=== PATIENT | male | born 1945 | race Caucasian/White ===

== ENCOUNTER 2016-09-29 07:30 | Inpatient (IN) | payer MEDICARE ==
[~2016-09-29] VITALS: Ht 193 cm; Wt 125.0 kg
[2016-10-09] MEDS ORDERED: MOBI15TA PO (08:58)
[2016-10-09] MEDS ORDERED: TEST1GEL10 TOPICAL (08:58)
[2016-10-09] MEDS ORDERED: ASPI81TA2 PO (08:58)
[2016-10-09] MEDS ORDERED: CYMB60CA PO (08:58)
[2016-10-09] MEDS ORDERED: OMEP40CA2 PO (08:58)
[2016-10-09] MEDS ORDERED: ATOR20TA15 PO (08:58)
[2016-10-09] MEDS ORDERED: GABA800T PO (08:58)
[2016-10-09] MEDS ORDERED: CARV12.52 PO (08:58)
[2016-10-27] MEDS ORDERED: LACTATED RINGER'S 1000 ML IV PRN (06:00)
[2016-10-27] MEDS ORDERED: VANCOMYCIN 1000 MG/NS 250 ML (for <70 kg) IV SCH ×2 (06:00)
[2016-10-27] MEDS ORDERED: METOPROLOL TARTRATE 25 MG TAB PO PRN (06:00)
[2016-10-27] MEDS ORDERED: POVIDONE IODINE 7.5% SCRUB 118 ML BOTTLE TOPICAL SCH (06:00)
[2016-10-27] MEDS ORDERED: CHLORHEXIDINE GLUCONATE 2 % 1 PACK (2 CLOTHS) TOPICAL PRN (06:00)
[2016-10-27] MEDS ORDERED: POVIDONE IODINE 5% (ANTISEPSIS KIT) 4 APPLICATIONS EACH NARE PRN (06:00)
[2016-10-27] MEDS ORDERED: EXPAREL PERI-ARTICULAR INJECTION (TOTAL VOL. 60 ML) P-ARTICULR SCH ×2 (06:00)
[2016-10-27] MEDS ORDERED: SODIUM CHLORIDE 0.9% IV SCH ×2 (06:00→10:00)
[2016-10-27] MEDS ORDERED: SODIUM CHLORID 0.9% 500 ML IV PRN (06:00)
[2016-10-27] MEDS ORDERED: TRANEXAMIC ACID IV SCH ×2 (06:00→10:00)
[2016-10-27] MEDS ORDERED: INSULIN HUMAN REGULAR 1,000 UNITS/10 ML VIAL SQ PRN (06:00)
[2016-10-27] MEDS ORDERED: ceFAZolin 2 GM PREMIX 50 ML IV SCH (06:00)
[2016-10-27] MEDS ORDERED: FAMOTIDINE 20 MG/2 ML VIAL ONE (06:52)
[2016-10-27] MEDS ORDERED: MIDAZOLAM HCL 2 MG/2 ML VIAL ONE (06:52)
[2016-10-27] MEDS ORDERED: ACETAMINOPHEN 1000 MG/100 ML VIAL ONE (06:52)
[2016-10-27] MEDS ORDERED: EPINEPHrine HCL (1:1000) 1 MG/ML VIAL ONE (06:55)
[2016-10-27] MEDS ORDERED: GENTAMICIN SULFATE 80 MG/2 ML VIAL ONE (06:55)
[2016-10-27] MEDS ORDERED: MISCELLANEOUS PHARMACY INFORMATION XX ONE (07:45)
[2016-10-27] MEDS ORDERED: ACETAMINOPHEN/HYDROcodone 325 MG/7.5 MG TAB PO PRN (07:45)
[2016-10-27] MEDS ORDERED: NALOXONE HCL 0.4 MG/ML AMP IV PRN (07:45)
[2016-10-27] MEDS ORDERED: SODIUM CHLORIDE 0.9% FLUSH 5 ML FLUSH IVF PRN (07:45)
[2016-10-27] MEDS ORDERED: MORPHINE SULFATE 8 MG/ML INJ IM PRN (07:45)
[2016-10-27] MEDS ORDERED: MISCELLANEOUS NURSING INFORMATION XX PRN (07:45)
[2016-10-27] MEDS ORDERED: HYDROmorphone HCL PF 2 MG/ML VIAL ONE (07:46)
[2016-10-27] MEDS ORDERED: HYDR-3580 PO (07:51)
[2016-10-27] MEDS ORDERED: XARE10TA PO (07:51)
[2016-10-27] MEDS: MAGNESIUM HYDROXIDE SUSP 30 ML CUP PO SCH ×2 (09:00→20:02)
[2016-10-27] MEDS: CARVEDILOL 12.5 MG TAB PO SCH ×2 (09:00→20:01)
[2016-10-27] MEDS: PANTOPRAZOLE SOD 40 MG DELAYED RELEASE TAB PO SCH (09:00)
[2016-10-27] MEDS: SODIUM CHLORIDE 0.9% FLUSH 5 ML FLUSH IVF SCH ×2 (09:00→20:03)
[2016-10-27] MEDS: DULoxetine HCl DR 60 MG CAP PO SCH ×2 (09:00→20:01)
--- NOTE | 2016-10-27 09:54 | PD.OP ---
cc: Mario Aguirre MD Operative Report Date of Surgery: Oct 27, 2016 Preoperative Diagnosis: Osteoarthritis right hip, severe Postoperative Diagnosis: Same Procedure: Right total hip replacement arthroplasty, direct anterior exposure Anesthesia: Gen. Surgeon: Mario Aguirre Electrical Sign Wirer Helper(s): GREER Montesinos Operation and Findings: EBL: 1100 cc INDICATION: This patient presents with significant hip pain related to severe osteoarthritis of the right hip. He has had a previous left hip replacement arthroplasty and has done well.. Despite extensive conservative care this patient continues to be painful and now presents for surgical treatment. NOTE: Tanya Montesinos PA-C was present for the entire surgical procedure as my cleaner assistant. In my medical opinion her skill and care was necessary for the proper management of this patient. COMPONENTS: COMPANY: [employer] CUP: Cooks, 62 mm, 100 series, gription surface LINER: Altrx 36 mm, neutral STEM: Corail size 12, high offset, hydroxyapatite-coated HEAD: 36, +8.5, metal, 12/14 taper PROCEDURE: This patient was brought to the operating room and anesthetized in the supine position and positioned on the fracture table with both legs held extended. The right hip and leg was scrubbed with alcohol followed by Hibiclens followed by ChloraPrep and draped sterilely. Antibiotics were given within routine time window and a timeout was done. A 4 inch incision was made starting 2 cm distal and 2 cm lateral to the anterior superior iliac spine. The fascia julienne was opened longitudinally. The interval between the fascia julienne and the rectus was opened down to the capsule of the hip joint. Retractors were positioned allowing good visualization of the capsule. This was opened longitudinally and flaps were created. Stay sutures were utilized. Exposure was excellent. The neck was cut at the proper location using fluoroscopy as a guide. The head was removed. Deep retractors were positioned allowing good visualization of the acetabulum. Acetabulum was deepened down to the floor starting with a proper size reamer and reaming up to 61 mm. A trial was utilized. Fluoroscopy was used to check position and confirmed satisfactory alignment. The rim was reamed with a 62 mm reamer and the final cup was positioned in approximately 20 of anteversion and 40-45 of abduction. Position was satisfactory. A single hole eliminator was positioned followed by the final liner. The lifting hook was utilized. The leg was dropped to the floor, maximally externally rotated and brought across the midline. Retractors were positioned. A box osteotome was utilized followed by progressive broaching to the proper stem size. We found we had to ream the canal to 12 mm with a flexible reamer in order to go from a size 11 to a size 12. The size 11 was too deeply seated and the size 12 would not fit because of a tight canal diameter. Trial reduction showed excellent alignment and fit. With 60 of external rotation the leg was dropped to the floor without evidence of anterior subluxation. The wound was irrigated. The final stem was inserted and was found to be very stable. The final reduction using the final head. Stability was as previously noted. Intraoperative x-rays were taken. The wound was irrigated copiously. Hemostasis was controlled. Local anesthesia was utilized. The capsule was repaired with #2 Tycron sutures. The fascia julienne was repaired with running 0 PDS on a loop. Subcutaneous tissue was approximated with 2-0 Vicryl and skin with running intradermal 3-0 Vicryl followed by Steri-Strips. A sterile dressing was applied. The patient was awakened and taken to the recovery room in satisfactory condition. FINDINGS: There was severe osteoarthritis of the hip. Circumferential osteophytes were removed with a See and osteotome after cup placement. Stability was excellent. There was no comp location that was appreciated. Mario Aguirre MD Oct 27, 2016 09:54
[2016-10-27] MEDS ORDERED: MORPHINE SULFATE 30 MG/30 ML PCA IV SCH (10:00)
[2016-10-27] MEDS ORDERED: fentaNYL CITRATE 250 MCG/5 ML AMP ONE (10:21)
[2016-10-27] MEDS ORDERED: Post-op Orders (for Pharmacy) MISC XX ONE (10:30)
[2016-10-27] MEDS: LACTATED RINGER'S 1000 ML INJ 1,000 ML IV SCH (10:39)
[2016-10-27] MEDS ORDERED: DO NOT ADM ANY ANTICOAGULANT DRUGS PRN (10:45)
[2016-10-27 12:50] VITALS: BP 139/63; PULSE 83; RESP 20; TEMP 97.2; O2SAT 94
[2016-10-27] MEDS: PCA - TOTAL MG MORPHINE DELIVERED PER SHIFT SCH ×2 (14:00→22:00)
[2016-10-27] MEDS ORDERED: PROPOFOL 200 MG/20 ML AMP IV ONE (14:13)
[2016-10-27] MEDS ORDERED: ePHEDrine/NS 25 MG/5 ML SYR IV ONE (14:13)
[2016-10-27] MEDS ORDERED: NEOSTIGMINE 3 MG/3 ML SYR IV ONE (14:13)
[2016-10-27] MEDS ORDERED: ONDANSETRON HCL 4 MG/2 ML VIAL IV PUSH ONE (14:13)
[2016-10-27] MEDS ORDERED: PHENYLEPH/NS 1000 MCG/10 ML SYR IV ONE (14:13)
[2016-10-27] MEDS ORDERED: LACTATED RINGER'S 1000 ML INJ 2,000 ML IV ONE (14:13)
[2016-10-27] MEDS: ACETAMINOPHEN/HYDROcodone 325 MG/7.5 MG TAB PO PRN ×2 (15:20→20:02)
--- NOTE | 2016-10-27 15:28 | RADRPT ---
EXAM DATE/TIME: 10/27/2016 07:51 [facility] COMPARISON: No previous studies available for comparison. INDICATIONS : Right total hip arthroplasty. MEDICAL HISTORY : Unobtainable. SURGICAL HISTORY : Unobtainable ENCOUNTER: Initial ACUITY: 1 day PAIN SCORE: Non-responsive. LOCATION: Right hip FINDINGS: 3 spot intraoperative fluoroscopic views of the right hip demonstrate a right total hip arthroplasty with satisfactory alignment at the right hip joint. CONCLUSION: Postoperative changes. Chris Bartlett MD on October 27, 2016 at 15:26 Board Certified Radiologist. This report was verified electronically.
[2016-10-27 16:30] VITALS: BP 116/62; PULSE 89; RESP 20; TEMP 97.7; O2SAT 96
[2016-10-27 20:30] VITALS: BP 127/67; PULSE 93; RESP 18; TEMP 97.1; O2SAT 95
[2016-10-27 20:54] VITALS: O2SAT 94
[2016-10-27] MEDS ORDERED: GABAPENTIN 400 MG CAP PO SCH (21:00)
[2016-10-27] MEDS ORDERED: ATORVASTATIN 20 MG TAB PO SCH (21:00)
[2016-10-27] MEDS ORDERED: SENNOSIDES 8.6 MG TAB PO SCH (21:00)
[2016-10-28] VITALS: BP 109/70; PULSE 96; RESP 18; TEMP 98; O2SAT 93
[2016-10-28] MEDS: ACETAMINOPHEN/HYDROcodone 325 MG/7.5 MG TAB PO PRN ×5 (00:48→16:29)
[2016-10-28] MEDS: LACTATED RINGER'S 1000 ML INJ 1,000 ML IV SCH ×2 (00:55→10:00)
[2016-10-28 05:00] VITALS: BP 115/59; PULSE 81; RESP 17; TEMP 97.4; O2SAT 93
[2016-10-28] MEDS: PCA - TOTAL MG MORPHINE DELIVERED PER SHIFT SCH (06:00)
[2016-10-28 08:00] VITALS: BP 136/62; PULSE 79; RESP 17; TEMP 97; O2SAT 94
[2016-10-28 08:12] LABS: HEMATOCRIT 33.5 % (39.0-51.0); REVIEW FLAG FINAL
--- NOTE | 2016-10-28 08:26 | HHI.DCPOC ---
Discharge Care Plan Diagnosis: (1) Osteoarthritis of right hip Your Health Problems Are: Incision/Drains Swelling Goals to Promote Your Health * To prevent worsening of your condition and complications * To maintain your health at the optimal level Directions to Meet Your Goals Take your medications as prescribed Follow your dietary instruction Follow activity as directed Keep your appointments as scheduled Take your immunizations and boosters as scheduled If your symptoms worsen call your PCP, if no PCP go to Urgent Care Center or Emergency Room Smoking is Dangerous to Your Health. Avoid second hand smoke Call the 24-hour hour crisis hotline for domestic abuse at Marion Nielson Oct 28, 2016 08:26
--- NOTE | 2016-10-28 08:27 | HHI.FF ---
Face to Face Verification Diagnosis: (1) Osteoarthritis of right hip Physical Therapy Gait training, Safety evaluation, Transfer training, bed to chair Hip: Total hip, Protocol: Right, Progress to weight bearing Right LE Weight Bearing: WB as tolerated Additional Instructions PT 4 days/wk for 2 weeks. R JOON, anterior protocol. WBAT RLE. Gait training. LE strengthening Nursing RN Days per Week: 2 x Week(s): 1 Dressing Changes: Do not change dressing Additional Instructions Vitals assessment. Dressing assessment - do not change unless saturated or erythema. I have seen patient Dain Glasgow on 10/28/16. My clinical findings support the need for the requested home health care services because: Limited ability to care for self High risk of falls I certify that my clinical findings support that this patient is homebound because: Post-op weakness Unsteady gait/balance Marion Nielson Oct 28, 2016 08:27
--- NOTE | 2016-10-28 08:29 | HHI.DS ---
Discharge Summary Admission Date Oct 27, 2016 at 05:21 Discharge Date: Oct 28, 2016 Admitting Diagnosis see below Diagnosis: (1) Osteoarthritis of right hip Diagnosis: Principal ICD Codes: M16.11 - Unilateral primary osteoarthritis, right hip Procedures Right total hip arthroplasty, direct anterior approach Brief History This is a 71 year old male patient with bilateral hip pain for 4 years. He sought out medical treatment. Imaging studies were performed showing arthritis of both hips. He attempted physical therapy. He eventually came to left total hip arthroplasty. He did well for a period of time but his right hip slowly continued to decline. He tried meloxicam and naproxen without success. Imaging studies were repeated 2 years later showing advanced arthritis about the right hip. Surgical treatment was recommended in the form of right total hip arthroplasty, direct anterior approach and he agreed to move forward. CBC/BMP: 10/28/16 0700 Significant Findings Laboratory Tests Test 10/28/16 07:00 Hemoglobin 11.4 GM/DL (13.0-17.0) Hematocrit 33.5 % (39.0-51.0) Hospital Course Surgical treatment was performed on the day of admission without complication. He recovered well in PACU and was transferred to the orthopaedic floor. Pain was controlled with IV and oral medications. DVT prophylaxis was initiated in the form of xarelto. He was compliant with physical therapy and all restrictions. After 1 day he was found to be stable and discharged home with home health care with instruction to continue his xarelto for 25 days, to continue his PT and to pursue a high fiber diet for 3-5 days. Pt Condition on Discharge: Stable Discharge Disposition: Disch w/ Home Health Serv Discharge Instructions Diet Instructions: As Tolerated, No Restrictions, High Fiber Diet Activities You Can Perform: Weight Bearing as Dio Activities to Avoid: Strenuous Activity Additional Activity Instruc.: Anterior JOON protocol New Medications: Hydrocodone-Acetaminophen (Hydrocodone-Acetaminophen) 7.5-325 mg Tab 1 TAB PO Q4H PRN for pain, #50 TAB Rivaroxaban (Xarelto) 10 Mg Tab 10 MG PO Q24H for Prevent Blood Clot, #25 TAB Continued Medications: Atorvastatin (Atorvastatin) 20 Mg Tab 20 MG PO HS for Cholesterol Management, #30 TAB 0 Refills Carvedilol (Carvedilol) 12.5 Mg Tab 12.5 MG PO BID, #60 TAB [address] (Cymbalta DR) 60 Mg Capdr 60 MG PO BID, #30 CAP 0 Refills Gabapentin (Gabapentin) 800 Mg Tab 800 MG PO HS for Pain Management, #90 TAB 0 Refills Omeprazole (Omeprazole) 40 Mg Cap 40 MG PO DAILY for gerd, #30 CAP 0 Refills Testosterone Topical (Testosterone Topical) 10 Mg/0.5 Gm Gel 10 MG TOPICAL DAILY for Hormone Replacement, #60 GM 0 Refills 10 mg/actuation Discontinued Medications: Aspirin DR (Aspirin EC Low Dose) 81 Mg Tabec 81 MG PO DAILY, TAB Meloxicam (Mobic) 15 Mg Tab 15 MG PO DAILY, TAB 0 Refills Marion Nielson Oct 28, 2016 08:29
[2016-10-28] MEDS ORDERED: WALKER WHEELS/F1 MIS (08:30)
[2016-10-28] MEDS ORDERED: ADJUSTABLE COMM1 MIS (08:31)
[2016-10-28] MEDS: DULoxetine HCl DR 60 MG CAP PO SCH (08:31)
[2016-10-28] MEDS: PANTOPRAZOLE SOD 40 MG DELAYED RELEASE TAB PO SCH (08:31)
[2016-10-28] MEDS: MAGNESIUM HYDROXIDE SUSP 30 ML CUP PO SCH (08:32)
[2016-10-28] MEDS: CARVEDILOL 12.5 MG TAB PO SCH (08:32)
[2016-10-28] MEDS: SODIUM CHLORIDE 0.9% FLUSH 5 ML FLUSH IVF SCH (08:36)
[2016-10-28] MEDS ORDERED: RIVAROXABAN 10 MG TAB PO SCH (09:00)
[2016-10-28 10:30] VITALS: O2SAT 95
[2016-10-28 12:00] VITALS: BP 127/68; PULSE 90; RESP 17; TEMP 97.5; O2SAT 85
--- NOTE | 2016-10-28 13:34 | PD.ORT.PN ---
Subjective Subjective Remarks Moderate right hip pain with PO meds helpful. Did not sleep well last night due to the beeping noises, etc. Hip sore but no radiating leg pain. No new CP or SOB. He is considering going home today. Has family at home. Objective Vitals Vital Signs Date Time Temp Pulse Resp B/P (MAP) Pulse Ox O2 Delivery O2 Flow Rate FiO2 10/28/16 12:00 97.5 90 17 127/68 (87) 85 10/28/16 10:30 95 10/28/16 08:00 97.0 79 17 136/62 (86) 94 10/28/16 05:00 97.4 81 17 115/59 (77) 93 10/28/16 00:00 98.0 96 18 109/70 (83) 93 10/27/16 20:54 94 21 10/27/16 20:30 97.1 93 18 127/67 (87) 95 10/27/16 18:42 Room Air 10/27/16 16:30 97.7 89 20 116/62 (80) 96 10/27/16 16:20 16 10/27/16 14:00 16 I/O 10/27/16 10/27/16 10/27/16 10/28/16 10/28/16 10/28/16 07:00 15:00 23:00 07:00 15:00 23:00 Intake Total 3740 ml 803 ml 1177 ml Output Total 1300 ml 600 ml 300 ml Balance 2440 ml 203 ml 877 ml Intake Oral 840 ml 480 ml 480 ml IV Total 800 ml 323 ml 697 ml Other 2100 ml Output Urine Total 200 ml 600 ml 300 ml Estimated Blood Loss 1100 ml # Voids 0 4 # Bowel Movements 0 0 0 Result Diagram: 10/28/16 0700 Procedures Right total hip arthroplasty, direct anterior approach Objective Remarks Sitting up in chair, NAD VSS RLE Dressing c/d/i, no drainage, mild ecchymosis, mild swelling and warmth +motor at, +sens, +nvi neg homans bilat, calves supple Assessment & Plan Ortho Post Op Day #: 1 Problem List: (1) Osteoarthritis of right hip ICD Codes: M16.11 - Unilateral primary osteoarthritis, right hip Qualifiers: Qualified Codes: M16.11 - Unilateral primary osteoarthritis, right hip Assessment and Plan pod#1 s/p R JOON, anterior approach 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 Ok to d/c home w [facility] today after class. Xarelto 10mg qd for 25 days. Hold dressing changes unless saturated. PT - WBAT RLE. Anterior protocol. F/U in 2 weeks as scheduled. DME written. Marion Nielson Oct 28, 2016 13:34
== END 2016-10-28 17:40 | disposition home health service (06) | DRG 470 ==
LOC: HSDI 10-27 05:21 → N06B 10-27 12:20
PROVIDERS: ADMIT Orthopaedic Surgery Orthopaedic Surgery of the Spine; ATTEND Orthopaedic Surgery Orthopaedic Surgery of the Spine
PROC: 0SR902A Replacement of Right Hip Joint with Metal on Polyethylene Synthetic Substitute, Uncemented, Open Approach (ICD-10-PCS; principal; 2016-10-27 07:11)
DX: M16.11 Unilateral primary osteoarthritis, right hip (principal); G62.9 Polyneuropathy, unspecified; I48.91 Unspecified atrial fibrillation; I10 Essential (primary) hypertension; E78.5 Hyperlipidemia, unspecified; F10.10 Alcohol abuse, uncomplicated; F32.9 Major depressive disorder, single episode, unspecified; Z96.642 Presence of left artificial hip joint; I25.10 Atherosclerotic heart disease of native coronary artery without angina pectoris; G47.30 Sleep apnea, unspecified; M54.9 Dorsalgia, unspecified; K21.9 Gastro-esophageal reflux disease without esophagitis; M25.751 Osteophyte, right hip
CPT/HCPCS: 73502; 76000; 85014; 85018; 86850; 86890; 86900; 86901; 86920; 94150; C1776; C9290; J0131; J0171; J0690; J1170; J1580; J2250; J2270; J2370; J2405; J2710; J3010; J3370; J7050; J7120

== ENCOUNTER → 2016-10-09 | Outpatient (CLI) | payer MEDICARE ==
[~2016-10-09] MED LIST: ASPI81TA2 PO; ATOR20TA PO; ATOR20TA15 PO; CARV12.52 PO; CARV6.252 PO; CYMB60CA PO; GABA800T PO; HYDR-3580 PO; MOBI15TA PO; OMEP20TA39 PO; OMEP40CA2 PO; TEST1GEL10 TOPICAL; WARF5 PO
[2016-10-09 10:39] LABS: AUTOMATED NEUTROPHIL # 3.7 TH/MM3 (1.8-7.7); BASOPHIL # 0.1 TH/MM3 (0-0.2); BASOPHIL % 1.1 % (0.0-2.0); EOSINOPHIL # 0.3 TH/MM3 (0-0.4); EOSINOPHIL % 4.3 % (0.0-4.0); HEMATOCRIT 40.2 % (39.0-51.0); HEMO FLAGS DIFF FINAL; LYMPHOCYTE # 1.6 TH/MM3 (1.0-4.8); MEAN CELL VOLUME 92.3 FL (80.0-100.0); MEAN CORPUSCULAR HEMOGLOBIN 31.4 PG (27.0-34.0); MONO % 9.6 % (0.0-8.0); PLATELET COUNT 211 TH/MM3 (150-450); RED BLOOD COUNT 4.36 MIL/MM3 (4.50-5.90); RED CELL DISTRIBUTION WIDTH 15.5 % (11.6-17.2); WHITE BLOOD COUNT 6.3 TH/MM3 (4.0-11.0)
[2016-10-09 10:52] LABS: APTT (PATIENT) 26.1 SEC (24.3-30.1); PROTHROMBIN TIME - PATIENT 10.8 SEC (9.8-11.6)
[2016-10-09 11:03] LABS: BICARBONATE 28.2 MEQ/L (21.0-32.0); POTASSIUM 3.8 MEQ/L (3.5-5.1)
[2016-10-09 11:25] LABS: BLOOD, URINE NEG (NEG); COMMENT (UR) CULT NOT INDICATED; CULTURE IF INDICATED CULT NOT INDICATED; GLUCOSE,URINE NEG (NEG); KETONE, URINE NEG (NEG); MUCUS URINE FEW /lpf (OCC); NITRITE,URINE NEG (NEG); PH, URINE 5.5 (5.0-8.5); SQUAMOUS EPITHELIAL CELL URINE <1 /hpf (0-5); URINE COLOR YELLOW (YELLW/STRAW)
--- NOTE | 2016-10-09 14:29 | EKG ---
Date Performed: 10/09/2016 Time Performed: 08:39:22 PTAGE: 71 years EKG: SINUS BRADYCARDIA BORDERLINE ECG NO PREVIOUS TRACING DOCTOR: Nikko Whittaker Interpretating Date/Time 10/09/2016 14:26:37
== END ==
LOC: CPRE 08:10
PROVIDERS: ATTEND Orthopaedic Surgery Orthopaedic Surgery of the Spine
DX: Z01.810 Encounter for preprocedural cardiovascular examination (principal); M16.11 Unilateral primary osteoarthritis, right hip; Z79.01 Long term (current) use of anticoagulants; Z01.812 Encounter for preprocedural laboratory examination; Z01.12 Encounter for hearing conservation and treatment
CPT/HCPCS: 36415; 80048; 81001; 85025; 85610; 85730; 93005

== ENCOUNTER 2016-10-29 19:37 | Inpatient (IN) | payer MEDICARE ==
[~2016-10-29] VITALS: Ht 193 cm; Wt 125.0 kg
[~2016-10-29 19:37] MED LIST changes: +ADJUSTABLE COMM1 MIS; -ASPI81TA2 PO; -ATOR20TA PO; -CARV6.252 PO; -MOBI15TA PO; -OMEP20TA39 PO; +WALKER WHEELS/F1 MIS; -WARF5 PO; +XARE10TA PO
[2016-10-29] MEDS ORDERED: IOHEXOL 350 MG/ML 10 ML VIAL (for RAD DIAG) IVCONTRAST ONE (19:38)
[2016-10-29 19:40] VITALS: BP 129/62; PULSE 80; RESP 18; TEMP 98.8; O2SAT 88
[2016-10-29 19:51] VITALS: BP 144/65; PULSE 82; RESP 20; TEMP 98.9; O2SAT 90
--- NOTE | 2016-10-29 20:06 | PD ---
HPI Chief Complaint: Respiratory Symptoms Time Seen by Provider: 19:53 Travel History International Travel<30 days: No Contact w/Intl Traveler<30days: No Traveled to known affect area: No History of Present Illness HPI 71-year-old male complains of generalized malaise and shortness of breath. Patient status post right total hip replacement 2 days ago. Patient started having fever to 102 last night. Patient has increasing generalized malaise and shortness of breath since last night. Patient states that he has occasional productive cough since last night also. Patient denies any headache. Patient denies any neck pain. Patient denies any chest pain. Patient states that he has occasional chest discomfort. Patient denies abdominal pain. Patient denies any nausea vomiting diarrhea. Patient has increasing right leg swelling since surgery. Patient denies any recent fall. Patient denies history of DVT or PE. Patient is on Xarelto 10 mg daily. Patient states that his O2 saturation was low this morning. Patient has history of CAD and hyperlipidemia. Patient denies any history hypertension, diabetes. Patient is a nonsmoker. PFSH Past Medical History Hx Anticoagulant Therapy: Yes Cancer: Yes (SKIN CANCER EXCISED - NO FURTHER TREATMENT REQ'D) Cardiovascular Problems: Yes (CAD) Coronary Artery Disease: Yes Diabetes: No (HYPOGLYCEMIA ) Endocrine: No Gastrointestinal Disorders: Yes (ACID REFLUX; DIVERTICULITIS ) Genitourinary: No Hepatitis: No Hiatal Hernia: No Hypertension: No Immune Disorder: No Musculoskeletal: Yes (BILATERAL OSTEOARTHRITIS HIP AND BACK ) Neurologic: Yes (NEUROPATHY BOTH FEET ) Psychiatric: Yes (ANXIETY & DEPRESSION ) Respiratory: Yes (SLEEP APNEA CPAP ) Thyroid Disease: No Past Surgical History Abdominal Surgery: No AICD: No Body Medical Devices: NONE Cardiac Surgery: No Ear Surgery: No Endocrine Surgery: No Eye Surgery: No Genitourinary Surgery: No Gynecologic Surgery: No Joint Replacement: Yes (left hip/ R HIP) Oral Surgery: Yes (tonsillectomy) Pacemaker: No Thoracic Surgery: No Other Surgery: Yes Social History Alcohol Use: Yes (3 XS WEEKLY) Tobacco Use: No Substance Use: No Allergies-Medications (Allergen,Severity, Reaction): Coded Allergies: No Known Allergies (Unverified , 10/29/16) Reported Meds & Prescriptions Reported Meds & Active Scripts Active Adjustable Commode 3-in-1 (Device) 1 Mis Mis Ea .ROUTE DIRECTED Walker with Front Wheels (Device) 1 Mis Mis Ea .ROUTE DIRECTED Xarelto (Rivaroxaban) 10 Mg Tab 10 Mg PO Q24H Hydrocodone-Acetaminophen 7.5-325 mg Tab 1 Tab PO Q4H PRN Reported Testosterone Topical (Testosterone) 10 Mg/0.5 Gm Gel 10 Mg TOPICAL DAILY 10 mg/actuation Cymbalta DR (Duloxetine HCl) 60 Mg Capdr 60 Mg PO BID Carvedilol 12.5 Mg Tab 12.5 Mg PO BID Gabapentin 800 Mg Tab 800 Mg PO HS Atorvastatin (Atorvastatin Calcium) 20 Mg Tab 20 Mg PO HS Omeprazole 40 Mg Cap 40 Mg PO DAILY Review of Systems General / Constitutional: Positive: Fever Eyes: No: Visual changes HENT: No: Headaches Cardiovascular: No: Chest Pain or Discomfort Respiratory: Positive: Cough, Shortness of Breath Gastrointestinal: No: Abdominal Pain Genitourinary: No: Dysuria Musculoskeletal: No: Pain Skin: No Rash Neurologic: No: Weakness Psychiatric: No: Depression Endocrine: No: Polydipsia Hematologic/Lymphatic: No: Easy Bruising Physical Exam Narrative GENERAL: Well-nourished, well-developed patient. SKIN: Focused skin assessment warm/dry. HEAD: Normocephalic. EYES: No scleral icterus. No injection or drainage. NECK: Supple, trachea midline. No JVD or lymphadenopathy. CARDIOVASCULAR: Regular rate and rhythm without murmurs, gallops, or rubs. RESPIRATORY: Patient had decreased breath sound the right mid lung the right lower lung area. Rhonchi is noted bibasilar. Mild expiratory wheezes noted. GASTROINTESTINAL: Abdomen soft, non-tender, nondistended. MUSCULOSKELETAL: No cyanosis, or edema. BACK: Patient has mild tenderness on palpation lateral aspect the right hip. Patient has soft tissue swelling diffusely over the right leg. Sensorimotor function distally intact. Neurologic exam normal. Data Data Last Documented VS Vital Signs Date Time Temp Pulse Resp B/P (MAP) Pulse Ox O2 Delivery O2 Flow Rate FiO2 10/29/16 19:59 20 97 Nasal Cannula 4.00 10/29/16 19:51 98.9 82 144/65 (91) Orders Orders Electrocardiogram (10/29/16 19:53) Complete Blood Count With Diff (10/29/16 19:53) Comprehensive Metabolic Panel (10/29/16 19:53) Creatine Kinase (Cpk) (10/29/16 19:53) Troponin I (10/29/16 19:53) B-Type Natriuretic Peptide (10/29/16 19:53) Prothrombin Time / Inr (Pt) (10/29/16 19:53) Act Partial Throm Time (Ptt) (10/29/16 19:53) Blood Culture (10/29/16 19:53) Urinalysis - C+S If Indicated (10/29/16 19:53) D-Dimer (10/29/16 19:53) Chest, Single Ap (10/29/16 19:53) Iv Access Insert/Monitor (10/29/16 19:53) Ecg Monitoring (10/29/16 19:53) Oxygen Administration (10/29/16 19:53) Oximetry (10/29/16 19:53) Ct Pulmonary Angiogram (10/29/16 19:53) Us Leg Venous Doppler (10/29/16 19:53) CKMB (10/29/16 20:12) CKMB% (10/29/16 20:12) Iohexol 350 Inj (Omnipaque 350 Inj) (10/29/16 19:38) Labs Laboratory Tests Test 10/29/16 20:12 10/29/16 20:45 White Blood Count 11.5 TH/MM3 Red Blood Count 3.57 MIL/MM3 Hemoglobin 11.1 GM/DL Hematocrit 33.5 % Mean Corpuscular Volume 94.0 FL Mean Corpuscular Hemoglobin 31.2 PG Mean Corpuscular Hemoglobin Concent 33.2 % Red Cell Distribution Width 15.5 % Platelet Count 203 TH/MM3 Mean Platelet Volume 6.6 FL Neutrophils (%) (Auto) 67.8 % Lymphocytes (%) (Auto) 16.8 % Monocytes (%) (Auto) 11.5 % Eosinophils (%) (Auto) 3.1 % Basophils (%) (Auto) 0.8 % Neutrophils # (Auto) 7.8 TH/MM3 Lymphocytes # (Auto) 1.9 TH/MM3 Monocytes # (Auto) 1.3 TH/MM3 Eosinophils # (Auto) 0.4 TH/MM3 Basophils # (Auto) 0.1 TH/MM3 CBC Comment DIFF FINAL Differential Comment Prothrombin Time 11.8 SEC Prothromb Time International Ratio 1.1 RATIO Activated Partial Thromboplast Time 33.2 SEC D-Dimer Quantitative (PE/DVT) 1.66 MG/L FEU Blood Urea Nitrogen 20 MG/DL Creatinine 1.18 MG/DL Random Glucose 119 MG/DL Total Protein 6.7 GM/DL Albumin 3.2 GM/DL Calcium Level 7.8 MG/DL Alkaline Phosphatase 100 U/L Aspartate Amino Transf (AST/SGOT) 52 U/L Alanine Aminotransferase (ALT/SGPT) 30 U/L Total Bilirubin 0.9 MG/DL Sodium Level 132 MEQ/L Potassium Level 3.8 MEQ/L Chloride Level 98 MEQ/L Carbon Dioxide Level 26.4 MEQ/L Anion Gap 8 MEQ/L Estimat Glomerular Filtration Rate 61 ML/MIN Total Creatine Kinase 875 U/L Creatine Kinase MB 2.6 NG/ML Creatine Kinase MB % 0.3 % Troponin I LESS THAN 0.02 NG/ML B-Type Natriuretic Peptide 58 PG/ML Urine Color YELLOW Urine Turbidity CLEAR Urine pH 5.5 Urine Specific [place] 1.022 Urine Protein TRACE mg/dL Urine Glucose (UA) NEG mg/dL Urine Ketones NEG mg/dL Urine Occult Blood NEG Urine Nitrite NEG Urine Bilirubin NEG Urine Urobilinogen LESS THAN 2.0 MG/DL Urine Leukocyte Esterase NEG Urine RBC LESS THAN 1 /hpf Urine WBC 1 /hpf Urine Bacteria RARE /hpf Urine Hyaline Casts 3 /lpf Urine Mucus FEW /lpf Microscopic Urinalysis Comment CULT NOT INDICATED MDM Medical Decision Making Medical Screen Exam Complete: Yes Emergency Medical Condition: Yes Interpretation(s) Last Impressions Lower Extremity Ultrasound 10/29/161952 Signed Impressions: Service Date/Time: October 20:14 - CONCLUSION: No DVT is identified within the right lower extremity. Lenoardo Diaz MD Chest X-Ray 10/29/161952 Signed Impressions: Service Date/Time: October 20:08 - CONCLUSION: Underinflation with atelectasis at the bases. There are also bilateral interstitial opacities which could be related to the underinflation or could represent interstitial pulmonary edema. Leonardo Diaz MD 21:[address] pulmonary angiogram shows no PE. Bilateral atelectasis with mild consolidation right lower lobe and right upper lobe. 21:58 PM. CBC WBC 11.5. Hemoglobin 11.1 hematocrit 33.5. Normal differential. Sodium 132. BUN 20. Total CK 875 with normal MB fraction. Troponin normal. BNP 58. UA is negative. Differential Diagnosis Differential diagnosis including pneumonia, PE, pneumothorax, DVT, sepsis. Narrative Course 71-year-old male with right leg swelling and shortness of breath and fever. Status post total right hip replacement 2 days ago. Normal saline solution 100 cc an hour. O2 4 L nasal cannula. Cefepime 1 g IV. Zithromax 500 mg IV. Albuterol with Atrovent unit dose treatment 1. Diagnosis Primary Impression: Pneumonia Qualified Codes: J18.1 - Lobar pneumonia, unspecified organism Admitting Information Admitting Physician Requests: Admit Joao Peña MD Oct 29, 2016 20:06
--- NOTE | 2016-10-29 20:18 | RADRPT ---
EXAM DATE/TIME: 10/29/2016 20:08 [facility] COMPARISON: No previous studies available for comparison. INDICATIONS : Shortness of breath since last night. MEDICAL HISTORY : Coronary artery disease. SURGICAL HISTORY : None. ENCOUNTER: Initial ACUITY: 1 day PAIN SCORE: 0/10 LOCATION: Bilateral chest FINDINGS: Portable AP view of the chest demonstrates a normal-sized cardiac silhouette. Lungs are underinflated with atelectasis at the bases and perihilar interstitial opacities are present. No pleural effusion or pneumothorax is identified. Bones and soft tissues demonstrate no acute finding. EKG lines overlie the patient. CONCLUSION: Underinflation with atelectasis at the bases. There are also bilateral interstitial opacities which c ould be related to the underinflation or could represent interstitial pulmonary edema. Leonardo Diaz MD on October 29, 2016 at 20:16 Board Certified Radiologist. This report was verified electronically.
--- NOTE | 2016-10-29 20:37 | RADRPT ---
EXAM DATE/TIME: 10/29/2016 20:14 [facility] COMPARISON: No previous studies available for comparison. INDICATIONS : Right leg pain. MEDICAL HISTORY : CAD. Skin cancer. SURGICAL HISTORY : Right hip replacement. ENCOUNTER: Initial ACUITY: 1 day PAIN SCORE: 2/10 LOCATION: Right leg. TECHNIQUE: Venous ultrasound of the leg was performed from the inguinal ligament to the proximal calf. Real-claudette e, color Doppler and spectral tracing, compression and augmentation techniques were used. FINDINGS: There is normal compressibility of the deep venous system from the inguinal region to the proximal ca lf. No echogenic clot is seen in the lumen of the common femoral, femoral, popliteal, and posterior tibial veins. There is a normal response of the venous system to proximal and distal augmentation an d respiration. CONCLUSION: No DVT is identified within the right lower extremity. Leonardo Diaz MD on October 29, 2016 at 20:35 Board Certified Radiologist. This report was verified electronically.
[2016-10-29 20:55] LABS: AUTOMATED NEUTROPHIL # 7.8 TH/MM3 (1.8-7.7); BASOPHIL # 0.1 TH/MM3 (0-0.2); BASOPHIL % 0.8 % (0.0-2.0); EOSINOPHIL # 0.4 TH/MM3 (0-0.4); EOSINOPHIL % 3.1 % (0.0-4.0); HEMATOCRIT 33.5 % (39.0-51.0); HEMO FLAGS DIFF FINAL; LYMPH % 16.8 % (9.0-44.0); LYMPHOCYTE # 1.9 TH/MM3 (1.0-4.8); MEAN CORPUSCULAR HEMOGLOBIN 31.2 PG (27.0-34.0); MEAN CORPUSCULAR HGB CONC 33.2 % (32.0-36.0); MONO % 11.5 % (0.0-8.0); NEUT % 67.8 % (16.0-70.0); PLATELET COUNT 203 TH/MM3 (150-450); RED BLOOD COUNT 3.57 MIL/MM3 (4.50-5.90); RED CELL DISTRIBUTION WIDTH 15.5 % (11.6-17.2); WHITE BLOOD COUNT 11.5 TH/MM3 (4.0-11.0)
[2016-10-29 21:04] LABS: APTT (PATIENT) 33.2 SEC (24.3-30.1); INTERNATIONAL NORMALIZED RATIO 1.1 RATIO; PROTHROMBIN TIME - PATIENT 11.8 SEC (9.8-11.6)
[2016-10-29 21:05] LABS: ANION GAP 8 MEQ/L (5-15); AST (GOT) 52 U/L (15-37); BICARBONATE 26.4 MEQ/L (21.0-32.0); BLOOD UREA NITROGEN 20 MG/DL (7-18); CHLORIDE 98 MEQ/L (98-107); GLOMERULAR FILTRATION RATE 61 ML/MIN (>89); POTASSIUM 3.8 MEQ/L (3.5-5.1); SODIUM (NA) 132 MEQ/L (136-145)
[2016-10-29 21:06] LABS: ALT (GPT) 30 U/L (12-78)
[2016-10-29 21:10] LABS: ALKALINE PHOSPHATASE 100 U/L (45-117); CREATINE KINASE 875 U/L (39-308); TOTAL BILIRUBIN ADULT 0.9 MG/DL (0.2-1.0)
[2016-10-29 21:23] LABS: CKMB 2.6 NG/ML (0.5-3.6)
[2016-10-29 21:51] LABS: BACTERIA, URINE RARE /hpf; BLOOD, URINE NEG (NEG); COMMENT (UR) CULT NOT INDICATED; CULTURE IF INDICATED CULT NOT INDICATED; GLUCOSE,URINE NEG (NEG); HYALINE CAST, URINE 3 /lpf (RARE); KETONE, URINE NEG (NEG); MUCUS URINE FEW /lpf (OCC); NITRITE,URINE NEG (NEG); PH, URINE 5.5 (5.0-8.5); URINE COLOR YELLOW (YELLW/STRAW)
--- NOTE | 2016-10-29 21:53 | RADRPT ---
EXAM DATE/TIME: 10/29/2016 21:33 [facility] COMPARISON: No previous studies available for comparison. INDICATIONS : Shortness of breath, fatigue, and fever status post hip surgery. IV CONTRAST: 75 cc Omnipaque 350 (iohexol) IV RADIATION DOSE: 21.87 CTDIvol (mGy) MEDICAL HISTORY : Coronary artery disease. SURGICAL HISTORY : None. ENCOUNTER: Initial ACUITY: 2 days PAIN SCALE: 0/10 LOCATION: chest TECHNIQUE: Volumetric scanning of the chest was performed using a pulmonary embolism protocol MIP images were re constructed. Using automated exposure control and adjustment of the mA and/or kV according to patien t size, radiation dose was kept as low as reasonably achievable to obtain optimal diagnostic quality images. DICOM format image data is available electronically for review and comparison. Follow-up recommendations for detected pulmonary nodules are based at a minimum on nodule size and pa tient risk factors according to Fleischner Society Guidelines. FINDINGS: PULMONARY ARTERIES: No filling defects are seen in the pulmonary arteries through the segmental level. LUNGS: There is linear atelectasis in the lower lobes with mild consolidation in the right lower lobe and pa tchy consolidation in the right upper lobe. PLEURAE: There is no pleural thickening or pleural effusion. MEDIASTINUM: There is good visualization of the great vessels of the middle mediastinum. There is coronary artery calcification. No evidence of mediastinal or hilar adenopathy/mass. MUSCULOSKELETAL: There are degenerative changes of the thoracic spine. MISCELLANEOUS: The visualized upper abdominal organs demonstrate no acute abnormality. CONCLUSION: 1. No PE is identified. 2. There is bilateral atelectasis along with mild consolidation in the right lower lobe and right upp er lobe. Leonardo Diaz MD on October 29, 2016 at 21:48 Board Certified Radiologist. This report was verified electronically.
[2016-10-29] MEDS ORDERED: CEFEPIME INJ 1,000 MG in SODIUM CHLORIDE 0.9% INJ 100 ML IV ONE (22:15)
[2016-10-29] MEDS ORDERED: AZITHROMYCIN INJ 500 MG in SODIUM CHLOR 0.9% 250 ML INJ 250 ML IV ONE (22:15)
[2016-10-29] MEDS ORDERED: RESP: ALBUTEROL 2.5 MG/IPRATROPIUM 0.5 MG NEB (SCH) NEB ONE (22:15)
[2016-10-29 22:22] VITALS: O2SAT 97
[2016-10-29 22:41] VITALS: O2SAT 97
[2016-10-29] MEDS ORDERED: SODIUM CHLORIDE 0.9% FLUSH 10 ML FLUSH IV FLUSH PRN (22:45)
[2016-10-29] MEDS ORDERED: CEFEPIME INJ 2,000 MG in SODIUM CHLORIDE 0.9% INJ 100 ML IV SCH (22:45)
[2016-10-29] MEDS ORDERED: ACETAMINOPHEN 325 MG TAB PO PRN (22:45)
[2016-10-29] MEDS ORDERED: ONDANSETRON HCL 4 MG/2 ML VIAL IVP PRN (22:45)
[2016-10-29 22:57] VITALS: BP 132/58; PULSE 78; RESP 16; O2SAT 90
--- NOTE | 2016-10-29 23:08 | HHI.HP ---
HPI Service [facility] Primary Care Physician Donato Sanchez DO Admission Diagnosis pneumonia Diagnoses: (1) Pneumonia Chief Complaint: fever and cough Travel History International Travel<30 Days: No Contact w/Intl Traveler <30 Da: No Traveled to Known Affected Are: No History of Present Illness Written by Claudia Tuttle, acting as scribe for Dr. Hay on 10/29/16 at 23:08. Patient seen in his room wearing home cpap. Fever of 102.4 and nonproductive cough. Denies chest pain, shortness of breath, syncope, or dizziness. Denies nausea, vomiting, or diarrhea. Dr. Aguirre referred him to the ED after he called reporting fever. Patient was admitted 10/27 and discharged 10/28 for total hip replacement. The patient is also complaining of right hip "burning" pain relating to post-op area. He states this started in the ED. He states that if he keeps his leg from rotating, the pain goes away but is requiring a rolled up blanket under right thigh to positionally support right hip to prevent the pain. Review of Systems Except as stated in HPI: all other systems reviewed are Neg Past Family Social History Past Medical History CAD Atrial fibrillation Left hip degenerative arthritis DANIELLE Denies hypertension, diabetes mellitus, CHF, COPD, Emphysema, asthma, kidney problems, liver problems, DVT, PE, CVA, seizures, thyroid problems, prostate problems, or cancers. Past Surgical History Right hip arthroplasty by Dr. Aguirre Left hip arthroplasty . Reported Medications Reported Meds & Active Scripts Active Adjustable Commode 3-in-1 (Device) 1 Mis Mis Ea .ROUTE DIRECTED Walker with Front Wheels (Device) 1 Mis Mis Ea .ROUTE DIRECTED Xarelto (Rivaroxaban) 10 Mg Tab 10 Mg PO Q24H Hydrocodone-Acetaminophen 7.5-325 mg Tab 1 Tab PO Q4H PRN Reported Testosterone Topical (Testosterone) 10 Mg/0.5 Gm Gel 10 Mg TOPICAL DAILY 10 mg/actuation Cymbalta DR (Duloxetine HCl) 60 Mg Capdr 60 Mg PO BID Carvedilol 12.5 Mg Tab 12.5 Mg PO BID Gabapentin 800 Mg Tab 800 Mg PO HS Atorvastatin (Atorvastatin Calcium) 20 Mg Tab 20 Mg PO HS Omeprazole 40 Mg Cap 40 Mg PO DAILY . Allergies: Coded Allergies: No Known Allergies (Unverified , 10/29/16) Active Ordered Medications Current Medications Iohexol (Omnipaque 350 Inj) 75 ml STK-MED ONCE IVCONTRAST Last administered on 10/29/16 19:38; Start 10/29/16 at 19:38; Stop 10/29/16 at 21:44; Status DC Cefepime HCl 1000 mg/Sodium Chloride 100 ml @ 200 mls/hr ONCE ONCE IV Last administered on 10/29/16 22:17; Start 10/29/16 at 22:15; Stop 10/29/16 at 22:44 ; Status DC Azithromycin 500 mg/Sodium Chloride 250 ml @ 250 mls/hr ONCE ONCE IV ; Start 10/29/16 at 22:15; Stop 10/29/16 at 23:14 Albuterol/ Ipratropium (Duoneb Neb) 1 ampule ONCE ONCE NEB Last administered on 10/29/16 22:17; Start 10/29/16 at 22:15; Stop 10/29/16 at 22:16; Status DC Sodium Chloride (NS Flush) 2 ml UNSCH PRN IV FLUSH FLUSH AFTER USING IV ACCESS ; Start 10/29/16 at 22:45 Sodium Chloride (NS Flush) 2 ml BID IV FLUSH ; Start 10/30/16 at 09:00 Acetaminophen (Tylenol) 650 mg Q4H PRN PO TEMP > 100.4/pain 1 - 4; Start at 22:45 Ondansetron HCl (Zofran Inj) 4 mg Q6H PRN IVP NAUSEA OR VOMITING; Start at 22:45 Cefepime HCl 2000 mg/Sodium Chloride 100 ml @ 200 mls/hr Q8H IV ; Start at 22:45; Stop 10/29/16 at 22:45; Status DC Cefepime HCl 2000 mg/Sodium Chloride 100 ml @ 200 mls/hr Q8H IV ; Start at 06:00 Atorvastatin Calcium (Lipitor) 20 mg HS PO ; Start 10/29/16 at 23:00 Carvedilol (Coreg) 12.5 mg BID PO ; Start 10/29/16 at 23:00 Duloxetine HCl (Cymbalta Dr) 60 mg BID PO ; Start 10/29/16 at 23:00 Gabapentin (Neurontin) 800 mg HS PO ; Start 10/29/16 at 23:00 Acetaminophen/ Hydrocodone Bitart ([place] 7.5-325 Mg) 1 tab Q4H PRN PO ; Start 10/29/16 at 23:00 Rivaroxaban (Xarelto) 10 mg Q24H PO ; Start 10/29/16 at 23:00; Status UNV Non-Formulary Medication 40 mg DAILY PO ; Start 10/30/16 at 09:00; Status UNV Non-Formulary Medication 10 mg DAILY TOPICAL ; Start 10/30/16 at 09:00; Status UNV . Family History Mother with [place] Father with prostate [place] . Social History Alcohol: occasional Illicit Drugs: denies Tobacco: denies . Physical Exam Vital Signs Vital Signs Date Time Temp Pulse Resp B/P (MAP) Pulse Ox O2 Delivery O2 Flow Rate FiO2 10/29/16 22:41 97 CPAP 4.00 10/29/16 22:22 97 Nasal Cannula 4.00 10/29/16 19:59 20 97 Nasal Cannula 4.00 10/29/16 19:58 97 Nasal Cannula 4.00 10/29/16 19:51 98.9 82 20 144/65 (91) 90 10/29/16 19:40 98.8 80 18 129/62 (84) 88 Room Air Physical Exam GENERAL: This is a obese elderly male patient, in no apparent distress. SKIN: No rashes, ecchymoses or lesions. Cool and dry. HEAD: Atraumatic. Normocephalic. EYES: Pupils equal round and reactive. No injection or drainage. ENT: Nose without bleeding, purulent drainage or septal hematoma. Airway patent. NECK: Trachea midline. No JVD. CARDIOVASCULAR: Regular rate and rhythm without murmurs, gallops, or rubs. Right leg with swelling noted - looks c/w post-op swelling. RESPIRATORY: Clear to auscultation. Breath sounds equal bilaterally. No wheezes , rales, or rhonchi. GASTROINTESTINAL: Abdomen soft, non-tender, nondistended. No guarding. MUSCULOSKELETAL: Extremities without clubbing, cyanosis, or edema. No calf tenderness. Right hip with gauze plus occlusive dressing. No signs of infection. Sensation intact. + 2 dorsalis pedis. NEUROLOGICAL: Awake and alert. Motor and sensory grossly within normal limits. Normal speech. . Laboratory Laboratory Tests Test 10/29/16 20:12 10/29/16 20:45 White Blood Count 11.5 Red Blood Count 3.57 Hemoglobin 11.1 Hematocrit 33.5 Mean Corpuscular Volume 94.0 Mean Corpuscular Hemoglobin 31.2 Mean Corpuscular Hemoglobin Concent 33.2 Red Cell Distribution Width 15.5 Platelet Count 203 Mean Platelet Volume 6.6 Neutrophils (%) (Auto) 67.8 Lymphocytes (%) (Auto) 16.8 Monocytes (%) (Auto) 11.5 Eosinophils (%) (Auto) 3.1 Basophils (%) (Auto) 0.8 Neutrophils # (Auto) 7.8 Lymphocytes # (Auto) 1.9 Monocytes # (Auto) 1.3 Eosinophils # (Auto) 0.4 Basophils # (Auto) 0.1 CBC Comment DIFF FINAL Differential Comment Prothrombin Time 11.8 Prothromb Time International Ratio 1.1 Activated Partial Thromboplast Time 33.2 D-Dimer Quantitative (PE/DVT) 1.66 Blood Urea Nitrogen 20 Creatinine 1.18 Random Glucose 119 Total Protein 6.7 Albumin 3.2 Calcium Level 7.8 Alkaline Phosphatase 100 Aspartate Amino Transf (AST/SGOT) 52 Alanine Aminotransferase (ALT/SGPT) 30 Total Bilirubin 0.9 Sodium Level 132 Potassium Level 3.8 Chloride Level 98 Carbon Dioxide Level 26.4 Anion Gap 8 Estimat Glomerular Filtration Rate 61 Total Creatine Kinase 875 Creatine Kinase MB 2.6 Creatine Kinase MB % 0.3 Troponin I LESS THAN 0.02 B-Type Natriuretic Peptide 58 Urine Color YELLOW Urine Turbidity CLEAR Urine pH 5.5 Urine Specific [place] 1.022 Urine Protein TRACE Urine Glucose (UA) NEG Urine Ketones NEG Urine Occult Blood NEG Urine Nitrite NEG Urine Bilirubin NEG Urine Urobilinogen LESS THAN 2.0 Urine Leukocyte Esterase NEG Urine RBC LESS THAN 1 Urine WBC 1 Urine Bacteria RARE Urine Hyaline Casts 3 Urine Mucus FEW Microscopic Urinalysis Comment CULT NOT INDICATED Date/Time Source Procedure Growth Status 10/29/16 20:12 Blood Peripheral Aerobic Blood Culture Pending Received 10/29/16 20:12 Blood Peripheral Anaerobic Blood Culture Pending Received Result Diagram: 10/29/16201110/29/162011 Imaging Last Impressions Lower Extremity Ultrasound 10/29/161952 Signed Impressions: Service Date/Time: October 20:14 - CONCLUSION: No DVT is identified within the right lower extremity. Leonardo Diaz MD Chest X-Ray 10/29/161952 Signed Impressions: Service Date/Time: October 20:08 - CONCLUSION: Underinflation with atelectasis at the bases. There are also bilateral interstitial opacities which could be related to the underinflation or could represent interstitial pulmonary edema. Leonardo Diaz MD CT Angiography 10/29/161952 Signed Impressions: Service Date/Time: October 21:33 - CONCLUSION: 1. No PE is identified. 2. There is bilateral atelectasis along with mild consolidation in the right lower lobe and right upper lobe. Leonardo Diaz MD . Caprini VTE Risk Assessment Caprini VTE Risk Assessment: Mod/High Risk (score >= 2) Caprini Risk Assessment Model Point Value = 1 Point Value = 2 Point Value = 3 Point Value = 5 Age 41-60 Minor surgery BMI > 25 kg/m2 Swollen legs Varicose veins or History of unexplained or recurrent spontaneous Oral contraceptives or hormone replacement Sepsis (< 1 month) Serious lung disease, including pneumonia (< 1 month) Abnormal pulmonary function Acute myocardial infarction Congestive heart failure (< 1 month) History of inflammatory bowel disease Medical patient at bed rest Age 61-74 Arthroscopic surgery Major open surgery (> 45 min) Laparoscopic surgery (> 45 min) Malignancy Confined to bed (> 72 hours) Immobilizing plaster cast Central venous access Age >= 75 History of VTE Family history of VTE Factor V Leiden Prothrombin [id number] Lupus anticoagulant Anticardiolipin antibodies Elevated serum homocysteine Heparin-induced thrombocytopenia Other congenital or acquired thrombophilia Stroke (< 1 month) Elective arthroplasty Hip, pelvis, or leg fracture Acute spinal cord injury (< 1 month) Prophylaxis Regimen Total Risk Factor Score Risk Level Prophylaxis Regimen 0-1 Low Early ambulation 2 Moderate Order ONE of the following: *Sequential Compression Device (SCD) *Heparin 5000 units SQ BID 3-4 Higher Order ONE of the following medications: *Heparin 5000 units SQ TID *Enoxaparin/Lovenox 40 mg SQ daily (WT < 150 kg, CrCl > 30 mL/min) *Enoxaparin/Lovenox 30 mg SQ daily (WT < 150 kg, CrCl > 10-29 mL/min) *Enoxaparin/Lovenox 30 mg SQ BID (WT < 150 kg, CrCl > 30 mL/min) AND/OR *Sequential Compression Device (SCD) 5 or more Highest Order ONE of the following medications: *Heparin 5000 units SQ TID (Preferred with Epidurals) *Enoxaparin/Lovenox 40 mg SQ daily (WT < 150 kg, CrCl > 30 mL/min) *Enoxaparin/Lovenox 30 mg SQ daily (WT < 150 kg, CrCl > 10-29 mL/min) *Enoxaparin/Lovenox 30 mg SQ BID (WT < 150 kg, CrCl > 30 mL/min) AND *Sequential Compression Device (SCD) Assessment and Plan Problem List: (1) Pneumonia ICD Code: J18.9 - Pneumonia, unspecified organism Status: Acute (2) Acute renal insufficiency ICD Code: N28.9 - Disorder of kidney and ureter, unspecified (3) Dehydration ICD Code: E86.0 - Dehydration (4) S/P total hip arthroplasty ICD Code: Z96.649 - Presence of unspecified artificial hip joint (5) CAD (coronary artery disease) ICD Code: I25.10 - Atherosclerotic heart disease of [place] coronary artery without angina pectoris (6) DANIELLE (obstructive sleep apnea) ICD Code: G47.33 - Obstructive sleep apnea (adult) (pediatric) Assessment and Plan Pneumonia, post-op, right lower and upper lobes with hypoxia - initial oxygen saturation 88% on room air - Cefepime 2 grams IV q8h - Duonebulizers q6h ATC and q2h PRN wheezing - supplemental oxygen titrated to maintain oxygen saturation > 92% Mild renal insufficiency - suspect secondary to mild dehydration - BUN 20, creatinine - 1.18, eGFR 61 - worsened from prior labs - Gentle IVF hydration with NS at 42 cc/hr - recheck BMP in a.m. and follow renal indices - Avoid nephrotoxins Right thigh with positional neuropathy s/p right JOON - consult physical therapy - continue home [place] for post-op pain management - will consult Dr. Aguirre for evaluation CAD - reports a 50% blockage - continue home medications atorvastatin and carvedilol - continuous cardiac telemetry to monitor for arrhythmias - monitor I and Os q shift for fluid overload - Heart healthy diet DANIELLE - continue home CPAP at night DVT prophylaxis - continue home Xarelto . This note was transcribed by [email or web address] [Claudia Tuttle]. I, Dr. Dell Hay personally performed the history, physical exam, and medical decision making; and confirmed the accuracy of the information in the transcribed note. Authenticated by Dr. Dell Hay on 10/29/16 at 23:08 Discussed Condition With ER physician, RN, and patient . Physician Certification 2 Midnight Certification Type: Admission for Inpatient Services Order for Inpatient Services The services are ordered in accordance with Medicare regulations or non- Medicare payer requirements, as applicable. In the case of services not specified as inpatient-only, they are appropriately provided as inpatient services in accordance with the 2-midnight benchmark. Estimated LOS (days): 3 days is the estimated time the patient will need to remain in the hospital, assuming treatment plan goals are met and no additional complications. Post-Hospital Plan: Home Problem Qualifiers (1) Pneumonia: Qualified Codes: J18.1 - Lobar pneumonia, unspecified organism Claudia Tuttle Oct 29, 2016 23:08 Dell Hay MD Oct 29, 2016 23:45
[2016-10-29] MEDS ORDERED: SODIUM CHLOR 0.9% 1000 ML INJ 1,000 ML IV SCH (23:30)
[2016-10-29] MEDS ORDERED: RESP: ALBUTEROL 2.5 MG/IPRATROPIUM 0.5 MG NEB (PRN) NEB (23:30)
[2016-10-29] MEDS: ACETAMINOPHEN/HYDROcodone 325 MG/7.5 MG TAB PO PRN (23:51)
[2016-10-30] VITALS (11 sets, daily range): BP systolic 111–138; BP diastolic 54–81; PULSE 71–94; RESP 18–20; TEMP 96.6–99; O2SAT 93–98
[2016-10-30] MEDS: DULoxetine HCl DR 60 MG CAP PO SCH ×3 (00:06→20:40)
[2016-10-30] MEDS: ATORVASTATIN 20 MG TAB PO SCH ×2 (00:06→20:40)
[2016-10-30] MEDS: GABAPENTIN 400 MG CAP PO SCH ×2 (00:06→20:40)
[2016-10-30] MEDS: CARVEDILOL 12.5 MG TAB PO SCH ×3 (00:06→20:39)
[2016-10-30] MEDS: RIVAROXABAN 10 MG TAB PO SCH ×2 (00:06→22:31)
[2016-10-30] MEDS: CEFEPIME INJ 2,000 MG in SODIUM CHLORIDE 0.9% INJ 100 ML IV SCH ×3 (05:29→22:32)
[2016-10-30] MEDS: ACETAMINOPHEN/HYDROcodone 325 MG/7.5 MG TAB PO PRN ×2 (05:35→20:39)
[2016-10-30 06:06] LABS: AUTOMATED NEUTROPHIL # 6.4 TH/MM3 (1.8-7.7); BASOPHIL % 0.5 % (0.0-2.0); EOSINOPHIL # 0.2 TH/MM3 (0-0.4); EOSINOPHIL % 2.3 % (0.0-4.0); HEMATOCRIT 28.5 % (39.0-51.0); HEMO FLAGS DIFF FINAL; LYMPH % 17.3 % (9.0-44.0); LYMPHOCYTE # 1.6 TH/MM3 (1.0-4.8); MEAN CELL VOLUME 93.1 FL (80.0-100.0); MEAN CORPUSCULAR HEMOGLOBIN 32.4 PG (27.0-34.0); MEAN CORPUSCULAR HGB CONC 34.8 % (32.0-36.0); MONO % 10.6 % (0.0-8.0); NEUT % 69.3 % (16.0-70.0); PLATELET COUNT 170 TH/MM3 (150-450); RED BLOOD COUNT 3.07 MIL/MM3 (4.50-5.90); RED CELL DISTRIBUTION WIDTH 15.4 % (11.6-17.2); WHITE BLOOD COUNT 9.3 TH/MM3 (4.0-11.0)
[2016-10-30 06:32] LABS: BICARBONATE 26.9 MEQ/L (21.0-32.0); POTASSIUM 3.6 MEQ/L (3.5-5.1)
[2016-10-30 06:59] LABS: CALCIUM-PROTEIN CORRECTED 7.9 MG/DL (8.5-10.1)
[2016-10-30] MEDS ORDERED: TESTOSTERONE 10 MG TOPICAL SCH (09:00)
[2016-10-30] MEDS: RESP: ALBUTEROL 2.5 MG/IPRATROPIUM 0.5 MG NEB (SCH) NEB ×3 (09:04→21:19)
--- NOTE | 2016-10-30 09:42 | HHI.PR ---
Subjective Remarks Some improvement overnight. Patient still requiring oxygen at 4 L/m. White blood cell count has decreased. Objective Vital Signs Date Time Temp Pulse Resp B/P (MAP) Pulse Ox O2 Delivery O2 Flow Rate FiO2 10/30/16 09:04 94 Nasal Cannula 4.00 10/30/16 08:00 98.6 81 20 138/64 (88) 98 10/30/16 04:00 96.6 82 18 121/55 (77) 93 10/30/16 01:15 20 10/30/16 00:00 96.7 73 18 136/62 (86) 97 10/29/16 22:57 78 16 132/58 (82) 90 Room Air 10/29/16 22:41 97 CPAP 4.00 10/29/16 22:22 97 Nasal Cannula 4.00 10/29/16 19:59 20 97 Nasal Cannula 4.00 10/29/16 19:58 97 Nasal Cannula 4.00 10/29/16 19:51 98.9 82 20 144/65 (91) 90 10/29/16 19:40 98.8 80 18 129/62 (84) 88 Room Air I/O 10/29/16 10/29/16 10/29/16 10/30/16 10/30/16 10/30/16 06:59 14:59 22:59 06:59 14:59 22:59 Intake Total 100 ml Output Total 300 ml Balance 100 ml -300 ml Intake IV Total 100 ml Output Urine Total 300 ml Result Diagram: 10/30/16 0502 10/30/16 0510 Objective Remarks GENERAL: NAD, A&Ox3 HEAD: Normocephalic. NECK: Supple, trachea midline. No lymphadenopathy. EYES: No scleral icterus. No injection or drainage. CARDIOVASCULAR: Regular rate and rhythm without murmurs, gallops, or rubs. RESPIRATORY: Breath sounds equal bilaterally. No accessory muscle use. GASTROINTESTINAL: Abdomen soft, non-tender, nondistended. MUSCULOSKELETAL: No cyanosis, or edema. SKIN: Warm and dry. NEURO: No focal neurological deficitis. A/P Problem List: (1) DANIELLE (obstructive sleep apnea) ICD Code: G47.33 - Obstructive sleep apnea (adult) (pediatric) (2) CAD (coronary artery disease) ICD Code: I25.10 - Atherosclerotic heart disease of [place] coronary artery without angina pectoris (3) Acute renal insufficiency ICD Code: N28.9 - Disorder of kidney and ureter, unspecified (4) Pneumonia ICD Code: J18.9 - Pneumonia, unspecified organism Status: Acute Assessment and Plan Assessment and plan 71-year-old male admitted secondary to pneumonia and hypoxia. Pneumonia, post-op right lower and upper lobes with hypoxia Continue oxygen Wean oxygen as tolerated Continue nebulized treatments Continue cefepime 2 g IV every 8 hours Follow for improvement Mild renal insufficiency Improved Follow renal function Discontinue IV hydration Avoid nephrotoxins s/p right JOON History of Right thigh with positional neuropathy Continue physical therapy Orthopedics consulted Continue pain treatments as needed CAD Strip 50% blockage Continue carvedilol Continue atorvastatin Follow on telemetry Heart healthy diet DANIELLE Continue CPAP at night DVT prophylaxis Continue Xarelto Discharge planning Patient may be able to discharge in 1-2 days if infectious signs continue to improve and oxygenation levels improve such that he is able to wean off oxygen supplementation Problem Qualifiers (1) Pneumonia: Qualified Codes: J18.1 - Lobar pneumonia, unspecified organism Toi Durand MD Oct 30, 2016 09:42
[2016-10-30] MEDS: PANTOPRAZOLE SOD 40 MG DELAYED RELEASE TAB PO SCH (10:41)
[2016-10-30] MEDS: SODIUM CHLORIDE 0.9% FLUSH 10 ML FLUSH IV FLUSH SCH ×2 (10:42→20:40)
--- NOTE | 2016-10-30 11:52 | EKG ---
Date Performed: 10/29/2016 Time Performed: 20:43:12 PTAGE: 71 years EKG: Sinus rhythm WITH OCCASIONAL SUPRAVENTRICULAR PREMATURE COMPLEXES BORDERLINE ECG Compared to prior tracing no sig nificant change PREVIOUS TRACING : 10/09/2016 08.39 DOCTOR: Harris Mauricio Interpretating Date/Time 10/30/2016 11:46:55
--- NOTE | 2016-10-30 12:26 | PD.ORT.PN ---
Subjective Subjective Remarks Readmitted due to difficulty with breathing and temperatures. Studies show evidence of pneumonia and was started on antibiotics. Having some pain in the hip but not unusual for being 3 days after anterior hip surgery Objective Vitals Vital Signs Date Time Temp Pulse Resp B/P (MAP) Pulse Ox O2 Delivery O2 Flow Rate FiO2 10/30/16 10:30 94 10/30/16 09:04 94 Nasal Cannula 4.00 10/30/16 08:00 98.6 81 20 138/64 (88) 98 10/30/16 04:00 96.6 82 18 121/55 (77) 93 10/30/16 01:15 20 10/30/16 00:00 96.7 73 18 136/62 (86) 97 10/29/16 22:57 78 16 132/58 (82) 90 Room Air 10/29/16 22:41 97 CPAP 4.00 10/29/16 22:22 97 Nasal Cannula 4.00 10/29/16 19:59 20 97 Nasal Cannula 4.00 10/29/16 19:58 97 Nasal Cannula 4.00 10/29/16 19:51 98.9 82 20 144/65 (91) 90 10/29/16 19:40 98.8 80 18 129/62 (84) 88 Room Air I/O 10/29/16 10/29/16 10/29/16 10/30/16 10/30/16 10/30/16 07:00 15:00 23:00 07:00 15:00 23:00 Intake Total 100 ml Output Total 300 ml Balance 100 ml -300 ml Intake IV Total 100 ml Output Urine Total 300 ml Result Diagram: 10/30/16 0502 10/30/16 0510 Other Results Laboratory Tests Test 10/29/16 20:12 Prothromb Time International Ratio 1.1 RATIO Prothrombin Time 11.8 SEC (9.8-11.6) Imaging Last 24 hours Impressions Lower Extremity Ultrasound 10/29/161952 Signed Impressions: Service Date/Time: October 20:14 - CONCLUSION: No DVT is identified within the right lower extremity. Leonardo Diaz MD Chest X-Ray 10/29/161952 Signed Impressions: Service Date/Time: October 20:08 - CONCLUSION: Underinflation with atelectasis at the bases. There are also bilateral interstitial opacities which could be related to the underinflation or could represent interstitial pulmonary edema. Leonardo Diaz MD CT Angiography 10/29/161952 Signed Impressions: Service Date/Time: , October 29, 2016 21:33 - CONCLUSION: 1. No PE is identified. 2. There is bilateral atelectasis along with mild consolidation in the right lower lobe and right upper lobe. eLonardo Diaz MD Objective Remarks wound looks completely benign. Mild swelling. No redness, no warmth. No calf tenderness Assessment & Plan Assessment and Plan osteoarthritis right hip, severe. Surgery: Right anterior JOON, POD #3 PLAN: Weightbearing as tolerated continue Xarelto. No dressing change. Continue with medical treatment of pneumonia stable orthopaedically for discharge whenever is cleared by medicine Mario Aguirre MD Oct 30, 2016 12:26
[2016-10-31] VITALS (8 sets, daily range): BP systolic 109–123; BP diastolic 52–71; PULSE 67–113; RESP 16–20; TEMP 96.2–97.9; O2SAT 92–98
[2016-10-31] MEDS: CEFEPIME INJ 2,000 MG in SODIUM CHLORIDE 0.9% INJ 100 ML IV SCH ×3 (05:06→22:23)
[2016-10-31] MEDS: RESP: ALBUTEROL 2.5 MG/IPRATROPIUM 0.5 MG NEB (SCH) NEB ×4 (05:46→20:07)
[2016-10-31] MEDS: PANTOPRAZOLE SOD 40 MG DELAYED RELEASE TAB PO SCH (08:15)
[2016-10-31] MEDS: CARVEDILOL 12.5 MG TAB PO SCH ×2 (08:15→22:25)
[2016-10-31] MEDS: SODIUM CHLORIDE 0.9% FLUSH 10 ML FLUSH IV FLUSH SCH ×2 (08:15→22:25)
[2016-10-31] MEDS: DULoxetine HCl DR 60 MG CAP PO SCH ×2 (08:15→22:24)
--- NOTE | 2016-10-31 08:19 | PD.ORT.PN ---
Subjective Subjective Remarks Right hip and thigh pain. He states it is slowly getting better following surgery on . Using his CPAP. No significant difficulty breathing. Did have pneumonia last year but recovered well. Is unsure if he ever had pneumovax vaccine. No concerns. Would like to get out of bed and ambulate today. Questions about discharge. Objective Vitals Vital Signs Date Time Temp Pulse Resp B/P (MAP) Pulse Ox O2 Delivery O2 Flow Rate FiO2 10/31/16 04:00 96.2 68 18 119/59 (79) 96 10/31/16 00:00 96.7 76 16 115/57 (76) 96 10/30/16 21:39 18 10/30/16 21:19 94 Nasal Cannula 2.00 10/30/16 20:00 99.0 82 18 133/60 (84) 93 10/30/16 19:40 79 10/30/16 16:00 97.1 71 20 125/81 (96) 94 10/30/16 15:41 97 Nasal Cannula 2.00 10/30/16 12:00 97.6 75 20 111/54 (73) 95 10/30/16 10:30 94 10/30/16 09:04 94 Nasal Cannula 4.00 I/O 10/30/16 10/30/16 10/30/16 10/31/16 10/31/16 10/31/16 07:00 15:00 23:00 07:00 15:00 23:00 Intake Total 980 ml Output Total 300 ml 1375 ml 1900 ml Balance -300 ml -395 ml -1900 ml Intake Oral 480 ml IV Total 500 ml Output Urine Total 300 ml 1375 ml 1900 ml Result Diagram: 10/30/16 0502 10/30/16 0510 Imaging Last 24 hours Impressions Lower Extremity Ultrasound 10/29/161952 Signed Impressions: Service Date/Time: October 20:14 - CONCLUSION: No DVT is identified within the right lower extremity. Leonardo Diaz MD Chest X-Ray 10/29/161952 Signed Impressions: Service Date/Time: October 20:08 - CONCLUSION: Underinflation with atelectasis at the bases. There are also bilateral interstitial opacities which could be related to the underinflation or could represent interstitial pulmonary edema. Leonardo Diaz MD CT Angiography 10/29/161952 Signed Impressions: Service Date/Time: October 21:33 - CONCLUSION: 1. No PE is identified. 2. There is bilateral atelectasis along with mild consolidation in the right lower lobe and right upper lobe. Leonardo Diaz MD Objective Remarks Sitting up in bed CPAP in place when we entered room NAD VSS - last O2 was 96 on 2L O2 RLE Dressing c/d/i, no new drainage, mild swelling thigh, no erythema +motor at distal, +sens, +nvi Neg homans, both calves supple Assessment & Plan Ortho Post Op Day #: 4 Problem List: Assessment and Plan pod#4 s/p R CADENCE, anterior approach Recent admission for right upper and lower pneumonia PO pain control. PT - will order OOB w walker. WBAT RLE. Anterior cadence precautions. Xarelto for dvt prophylaxis No dressing changes unless saturated. Continue with medical treatment of pneumonia. Ortho stable, ok for d/c home w [facility] when med stable. Marion Nielson Oct 31, 2016 08:19
--- NOTE | 2016-10-31 08:35 | HHI.PR ---
Subjective Remarks This is a pleasant 71 y/o Male who came to ER with Fever 102.4 and Non productive cough, he was sent by his Primary Orthopedic Surgery he is in status post Right Total Hip arthroplasty on 10/27/16. he has CAD, Atrial Fibrillation, Left hip degenerative OA, DANIELLE, Obesity, seen in his bedroom, discussed with nurse Miss Claros, as per patient not improving his is the same as yesterday, asked and encourage ambulation he will have Physical Therapy today recommended by Orthopedic emr implementation specialist. at the time of this evaluation he is in bed wearing CPAP. Objective Vital Signs Date Time Temp Pulse Resp B/P (MAP) Pulse Ox O2 Delivery O2 Flow Rate FiO2 10/31/16 04:00 96.2 68 18 119/59 (79) 96 10/31/16 00:00 96.7 76 16 115/57 (76) 96 10/30/16 21:39 18 10/30/16 21:19 94 Nasal Cannula 2.00 10/30/16 20:00 99.0 82 18 133/60 (84) 93 10/30/16 19:40 79 10/30/16 16:00 97.1 71 20 125/81 (96) 94 10/30/16 15:41 97 Nasal Cannula 2.00 10/30/16 12:00 97.6 75 20 111/54 (73) 95 10/30/16 10:30 94 10/30/16 09:04 94 Nasal Cannula 4.00 I/O 10/30/16 10/30/16 10/30/16 10/31/16 10/31/16 10/31/16 06:59 14:59 22:59 06:59 14:59 22:59 Intake Total 980 ml Output Total 300 ml 1375 ml 1900 ml Balance -300 ml -395 ml -1900 ml Intake Oral 480 ml IV Total 500 ml Output Urine Total 300 ml 1375 ml 1900 ml Result Diagram: 10/30/16 0502 10/30/16 0510 Imaging Last Impressions Lower Extremity Ultrasound 10/29/161952 Signed Impressions: Service Date/Time: October 20:14 - CONCLUSION: No DVT is identified within the right lower extremity. Leonardo Diaz MD Chest X-Ray 10/29/161952 Signed Impressions: Service Date/Time: October 20:08 - CONCLUSION: Underinflation with atelectasis at the bases. There are also bilateral interstitial opacities which could be related to the underinflation or could represent interstitial pulmonary edema. Leonardo Diaz MD CT Angiography 10/29/161952 Signed Impressions: Service Date/Time: October 21:33 - CONCLUSION: 1. No PE is identified. 2. There is bilateral atelectasis along with mild consolidation in the right lower lobe and right upper lobe. Leonardo Diaz MD Procedures None Other Results Laboratory Tests Test 10/29/16 20:12 10/29/16 20:45 10/30/16 05:02 10/30/16 05:10 Prothrombin Time 11.8 SEC Prothromb Time International Ratio 1.1 RATIO Activated Partial Thromboplast Time 33.2 SEC D-Dimer Quantitative (PE/DVT) 1.66 MG/L FEU Blood Urea Nitrogen 20 MG/DL 15 MG/DL Creatinine 1.18 MG/DL 0.91 MG/DL Random Glucose 119 MG/DL 108 MG/DL Total Protein 6.7 GM/DL 6.1 GM/DL Albumin 3.2 GM/DL Calcium Level 7.8 MG/DL 7.4 MG/DL Alkaline Phosphatase 100 U/L Aspartate Amino Transf (AST/SGOT) 52 U/L Alanine Aminotransferase (ALT/SGPT) 30 U/L Total Bilirubin 0.9 MG/DL Sodium Level 132 MEQ/L 133 MEQ/L Potassium Level 3.8 MEQ/L 3.6 MEQ/L Chloride Level 98 MEQ/L 98 MEQ/L Carbon Dioxide Level 26.4 MEQ/L 26.9 MEQ/L Total Creatine Kinase 875 U/L Creatine Kinase MB 2.6 NG/ML Creatine Kinase MB % 0.3 % Troponin I LESS THAN 0.02 NG/ML B-Type Natriuretic Peptide 58 PG/ML Urine Color YELLOW Urine Turbidity CLEAR Urine pH 5.5 Urine Specific [place] 1.022 Urine Protein TRACE mg/dL Urine Glucose (UA) NEG mg/dL Urine Ketones NEG mg/dL Urine Occult Blood NEG Urine Nitrite NEG Urine Bilirubin NEG Urine Urobilinogen LESS THAN 2.0 MG/DL Urine Leukocyte Esterase NEG Urine RBC LESS THAN 1 /hpf Urine WBC 1 /hpf Urine Bacteria RARE /hpf Urine Hyaline Casts 3 /lpf Urine Mucus FEW /lpf Microscopic Urinalysis Comment CULT NOT INDICATED White Blood Count 9.3 TH/MM3 Red Blood Count 3.07 MIL/MM3 Hemoglobin 9.9 GM/DL Hematocrit 28.5 % Mean Corpuscular Volume 93.1 FL Mean Corpuscular Hemoglobin 32.4 PG Mean Corpuscular Hemoglobin Concent 34.8 % Red Cell Distribution Width 15.4 % Platelet Count 170 TH/MM3 Mean Platelet Volume 6.8 FL Neutrophils (%) (Auto) 69.3 % Lymphocytes (%) (Auto) 17.3 % Monocytes (%) (Auto) 10.6 % Eosinophils (%) (Auto) 2.3 % Basophils (%) (Auto) 0.5 % Neutrophils # (Auto) 6.4 TH/MM3 Lymphocytes # (Auto) 1.6 TH/MM3 Monocytes # (Auto) 1.0 TH/MM3 Eosinophils # (Auto) 0.2 TH/MM3 Basophils # (Auto) 0.0 TH/MM3 CBC Comment DIFF FINAL Differential Comment Anion Gap 8 MEQ/L Estimat Glomerular Filtration Rate 82 ML/MIN Protein Corrected Calcium 7.9 MG/DL Objective Remarks GENERAL: NAD, A&Ox3, Obesity. HEAD: Normocephalic. NECK: Supple, trachea midline. No lymphadenopathy. EYES: No scleral icterus. No injection or drainage. CARDIOVASCULAR: Regular rate and rhythm without murmurs, gallops, or rubs. RESPIRATORY: Breath sounds equal bilaterally. No accessory muscle use. wearing CPAP. GASTROINTESTINAL: Abdomen soft, non-tender, nondistended. MUSCULOSKELETAL: No cyanosis, or edema. Right Hip dressed. SKIN: Warm and dry. NEURO: No focal neurological deficits Medications and IVs Current Medications Medications (Trade) Dose Ordered Sig/Marychuy Route Start Time Stop Time Status Last Admin (NS Flush) 2 ml UNSCH PRN IV FLUSH 10/29/16 22:45 (NS Flush) 2 ml BID IV FLUSH 10/30/16 09:00 10/31/16 08:15 (Tylenol) 650 mg Q4H PRN PO 10/29/16 22:45 (Zofran Inj) 4 mg Q6H PRN IVP 10/29/16 22:45 Cefepime HCl 2000 mg/Sodium Chloride 100 ml @ 200 mls/hr Q8H IV 10/30/16 06:00 10/31/16 05:06 (Lipitor) 20 mg HS PO 10/29/16 23:00 10/30/16 20:40 (Coreg) 12.5 mg BID PO 10/29/16 23:00 10/31/16 08:15 (Cymbalta Dr) 60 mg BID PO 10/29/16 23:00 10/31/16 08:15 (Neurontin) 800 mg HS PO 10/29/16 23:00 10/30/16 20:40 ([place] 7.5-325 Mg) 1 tab Q4H PRN PO 10/29/16 23:00 10/30/16 20:39 (Xarelto) 10 mg Q24H PO 10/29/16 23:00 10/30/16 22:31 (Protonix) 40 mg DAILY PO 10/30/16 09:00 10/31/16 08:15 Patient Own Medication PT OWN MED: (Testosterone Topical ... DAILY TOPICAL 10/30/16 09:00 Future Hold (Duoneb Neb) 1 ampule Q6HR NEB NEB 10/30/16 04:00 10/31/16 05:46 (Duoneb Neb) 1 ampule Q2HR NEB PRN NEB 10/29/16 23:30 A/P Assessment and Plan 71-year-old male admitted secondary to pneumonia and hypoxia. Pneumonia, post-op right lower and upper lobes with hypoxia Continue oxygen Wean oxygen as tolerated Continue nebulized treatments Continue cefepime 2 g IV every 8 hours, follow Chest X ray in am tomorrow PA and Lateral. Mild renal insufficiency Improved Avoid nephrotoxins s/p right JOON History of Right thigh with positional neuropathy Continue physical therapy, Orthopedic surgery following, today is his 4th post op day, JOON anterior approach, Xarelto for DVT prophylaxis, No dressing changes unless saturated, continue Physical Therapy okay for discharge by Orthopedic surgery will go on Home with [facility]. CAD Strip 50% blockage Continue carvedilol Continue atorvastatin Follow on telemetry Heart healthy diet DANIELLE Continue CPAP at night DVT prophylaxis Continue Xarelto Discharge Planning Patient may be able to discharge in 1-2 days if infectious signs continue to improve and oxygenation levels improve such that he is able to wean off oxygen supplementation Jono Styles MD Oct 31, 2016 08:35
[2016-10-31 10:36] LABS: BICARBONATE 27.6 MEQ/L (21.0-32.0); POTASSIUM 3.5 MEQ/L (3.5-5.1)
[2016-10-31] MEDS: ACETAMINOPHEN/HYDROcodone 325 MG/7.5 MG TAB PO PRN (11:29)
[2016-10-31 13:58] LABS: HEMATOCRIT 28.8 % (39.0-51.0); MEAN CELL VOLUME 93.3 FL (80.0-100.0); MEAN CORPUSCULAR HEMOGLOBIN 31.2 PG (27.0-34.0); MEAN CORPUSCULAR HGB CONC 33.4 % (32.0-36.0); PLATELET COUNT 195 TH/MM3 (150-450); RED BLOOD COUNT 3.09 MIL/MM3 (4.50-5.90); RED CELL DISTRIBUTION WIDTH 15.4 % (11.6-17.2); REVIEW FLAG FINAL; WHITE BLOOD COUNT 7.1 TH/MM3 (4.0-11.0)
[2016-10-31] MEDS: ATORVASTATIN 20 MG TAB PO SCH (22:24)
[2016-10-31] MEDS: GABAPENTIN 400 MG CAP PO SCH (22:24)
[2016-10-31] MEDS: RIVAROXABAN 10 MG TAB PO SCH (22:25)
[2016-11-01] VITALS (7 sets, daily range): BP systolic 114–158; BP diastolic 58–100; PULSE 61–77; RESP 16–20; TEMP 96.3–98.5; O2SAT 92–99
[2016-11-01] MEDS: ACETAMINOPHEN/HYDROcodone 325 MG/7.5 MG TAB PO PRN (03:03)
[2016-11-01] MEDS: RESP: ALBUTEROL 2.5 MG/IPRATROPIUM 0.5 MG NEB (SCH) NEB ×3 (05:13→20:54)
[2016-11-01 05:41] LABS: BICARBONATE 27.4 MEQ/L (21.0-32.0); MAGNESIUM 2.3 MG/DL (1.5-2.5); POTASSIUM 3.7 MEQ/L (3.5-5.1)
[2016-11-01] MEDS: CEFEPIME INJ 2,000 MG in SODIUM CHLORIDE 0.9% INJ 100 ML IV SCH ×3 (06:21→21:18)
[2016-11-01] MEDS: DULoxetine HCl DR 60 MG CAP PO SCH ×2 (07:48→21:17)
[2016-11-01] MEDS: CARVEDILOL 12.5 MG TAB PO SCH ×2 (07:48→21:17)
[2016-11-01] MEDS: SODIUM CHLORIDE 0.9% FLUSH 10 ML FLUSH IV FLUSH SCH ×2 (07:48→21:18)
[2016-11-01] MEDS: PANTOPRAZOLE SOD 40 MG DELAYED RELEASE TAB PO SCH (07:48)
--- NOTE | 2016-11-01 08:16 | PD.ORT.PN ---
Subjective Subjective Remarks Continues to improve. Very eager to go home. Was able to ambulate yesterday and did well. Right hip sore but pain controlled. No new concerns over chest pain, shortness of breath or difficulty breathing. Questions about discharge. Objective Vitals Vital Signs Date Time Temp Pulse Resp B/P (MAP) Pulse Ox O2 Delivery O2 Flow Rate FiO2 11/01/16 08:00 97.1 68 18 123/58 (79) 93 11/01/16 05:42 77 20 128/58 (81) 99 11/01/16 00:00 97.0 76 20 128/60 (82) 95 10/31/16 22:00 96 Bi-Pap 10/31/16 20:08 95 Nasal Cannula 2.00 10/31/16 20:00 97.4 78 20 121/64 (83) 96 10/31/16 16:00 97.9 113 20 123/71 (88) 93 10/31/16 12:00 96.9 67 16 109/52 (71) 98 10/31/16 08:56 92 Nasal Cannula 2.00 I/O 10/31/16 10/31/16 10/31/16 11/01/16 11/01/16 11/01/16 07:00 15:00 23:00 07:00 15:00 23:00 Intake Total 2100 ml 100 ml Output Total 1900 ml 1200 ml Balance -1900 ml 900 ml 100 ml Intake Oral 2100 ml IV Total 0 ml 100 ml Output Urine Total 1900 ml 1200 ml # Voids 2 # Bowel Movements 0 Result Diagram: 10/31/16 1322 11/01/16 0502 Imaging Last 24 hours Impressions Lower Extremity Ultrasound 10/29/161952 Signed Impressions: Service Date/Time: October 20:14 - CONCLUSION: No DVT is identified within the right lower extremity. Leonardo Diaz MD Chest X-Ray 10/29/161952 Signed Impressions: Service Date/Time: October 20:08 - CONCLUSION: Underinflation with atelectasis at the bases. There are also bilateral interstitial opacities which could be related to the underinflation or could represent interstitial pulmonary edema. Leonardo Diaz MD CT Angiography 10/29/161952 Signed Impressions: Service Date/Time: October 21:33 - CONCLUSION: 1. No PE is identified. 2. There is bilateral atelectasis along with mild consolidation in the right lower lobe and right upper lobe. Leonardo Diaz MD Objective Remarks Sitting up in bed No CPAP, No nasal cannula NAD VSS - last O2 was 99 RLE Dressing c/d/i, no new drainage, mild swelling thigh, no erythema +motor at distal, +sens, +nvi Neg homans, both calves supple Assessment & Plan Ortho Post Op Day #: 5 Problem List: Assessment and Plan pod#5 s/p R CADENCE, anterior approach Recent admission for right upper and lower lobe pneumonia Doing well orthopaedically. Ok to d/c from ortho standpoint. Will d/c home when med clears from pulm standpoint. PO pain control. PT - will order OOB w walker. WBAT RLE. Anterior cadence precautions. Xarelto for dvt prophylaxis No dressing changes unless saturated. F/U in 9-10 days as scheduled for R Hip. Marion Nielson Nov 01, 2016 08:16
--- NOTE | 2016-11-01 08:49 | HHI.PR ---
Subjective Remarks This is a pleasant 71 y/o Male who came to ER with Fever 102.4 and Non productive cough, he was sent by his Primary Orthopedic Surgery he is in status post Right Total Hip arthroplasty on 10/27/16. he has CAD, Atrial Fibrillation, Left hip degenerative OA, DANIELLE, Obesity, seen in his bedroom, discussed with nurse Miss Claros, as per patient not improving his is the same as yesterday, asked and encourage ambulation he will have Physical Therapy today recommended by Orthopedic international marketing specialist. at the time of this evaluation he is in bed wearing CPAP. 11/01: Seen in his bedroom, stable no nausea, vomit or diarrhea,new CXR stable but he clinically is improving, awaiting for him to have a bowel movement he does not have one since admission. Objective Vital Signs Date Time Temp Pulse Resp B/P (MAP) Pulse Ox O2 Delivery O2 Flow Rate FiO2 11/01/16 08:00 97.1 68 18 123/58 (79) 93 11/01/16 05:42 77 20 128/58 (81) 99 11/01/16 00:00 97.0 76 20 128/60 (82) 95 10/31/16 22:00 96 Bi-Pap 10/31/16 20:08 95 Nasal Cannula 2.00 10/31/16 20:00 97.4 78 20 121/64 (83) 96 10/31/16 16:00 97.9 113 20 123/71 (88) 93 10/31/16 12:00 96.9 67 16 109/52 (71) 98 10/31/16 08:56 92 Nasal Cannula 2.00 I/O 10/31/16 10/31/16 10/31/16 11/01/16 11/01/16 11/01/16 07:00 15:00 23:00 07:00 15:00 23:00 Intake Total 2100 ml 100 ml Output Total 1900 ml 1200 ml Balance -1900 ml 900 ml 100 ml Intake Oral 2100 ml IV Total 0 ml 100 ml Output Urine Total 1900 ml 1200 ml # Voids 2 # Bowel Movements 0 Result Diagram: 10/31/16 1322 11/01/16 0502 Imaging Last Impressions Chest X-Ray 11/01/16 0800 Signed Impressions: Service Date/Time: Tuesday, November 01, 2016 08:46 - CONCLUSION: Stable areas of confluent air space opacification within the right hemithorax consistent with pneumonia. Zulay Agudelo MD Lower Extremity Ultrasound 10/29/161952 Signed Impressions: Service Date/Time: October 20:14 - CONCLUSION: No DVT is identified within the right lower extremity. Leonardo Diaz MD CT Angiography 10/29/161952 Signed Impressions: Service Date/Time: October 21:33 - CONCLUSION: 1. No PE is identified. 2. There is bilateral atelectasis along with mild consolidation in the right lower lobe and right upper lobe. Leonardo Diaz MD Procedures None Other Results Laboratory Tests Test 10/29/16 20:12 10/29/16 20:45 10/30/16 05:02 10/30/16 05:10 Prothrombin Time 11.8 SEC Prothromb Time International Ratio 1.1 RATIO Activated Partial Thromboplast Time 33.2 SEC D-Dimer Quantitative (PE/DVT) 1.66 MG/L FEU Blood Urea Nitrogen 20 MG/DL 15 MG/DL Creatinine 1.18 MG/DL 0.91 MG/DL Random Glucose 119 MG/DL 108 MG/DL Total Protein 6.7 GM/DL 6.1 GM/DL Albumin 3.2 GM/DL Calcium Level 7.8 MG/DL 7.4 MG/DL Alkaline Phosphatase 100 U/L Aspartate Amino Transf (AST/SGOT) 52 U/L Alanine Aminotransferase (ALT/SGPT) 30 U/L Total Bilirubin 0.9 MG/DL Sodium Level 132 MEQ/L 133 MEQ/L Potassium Level 3.8 MEQ/L 3.6 MEQ/L Chloride Level 98 MEQ/L 98 MEQ/L Carbon Dioxide Level 26.4 MEQ/L 26.9 MEQ/L Total Creatine Kinase 875 U/L Creatine Kinase MB 2.6 NG/ML Creatine Kinase MB % 0.3 % Troponin I LESS THAN 0.02 NG/ML B-Type Natriuretic Peptide 58 PG/ML Urine Color YELLOW Urine Turbidity CLEAR Urine pH 5.5 Urine Specific [place] 1.022 Urine Protein TRACE mg/dL Urine Glucose (UA) NEG mg/dL Urine Ketones NEG mg/dL Urine Occult Blood NEG Urine Nitrite NEG Urine Bilirubin NEG Urine Urobilinogen LESS THAN 2.0 MG/DL Urine Leukocyte Esterase NEG Urine RBC LESS THAN 1 /hpf Urine WBC 1 /hpf Urine Bacteria RARE /hpf Urine Hyaline Casts 3 /lpf Urine Mucus FEW /lpf Microscopic Urinalysis Comment CULT NOT INDICATED Neutrophils (%) (Auto) 69.3 % Lymphocytes (%) (Auto) 17.3 % Monocytes (%) (Auto) 10.6 % Eosinophils (%) (Auto) 2.3 % Basophils (%) (Auto) 0.5 % Neutrophils # (Auto) 6.4 TH/MM3 Lymphocytes # (Auto) 1.6 TH/MM3 Monocytes # (Auto) 1.0 TH/MM3 Eosinophils # (Auto) 0.2 TH/MM3 Basophils # (Auto) 0.0 TH/MM3 CBC Comment DIFF FINAL Differential Comment Protein Corrected Calcium 7.9 MG/DL Test 10/31/16 13:22 11/01/16 05:02 White Blood Count 7.1 TH/MM3 Red Blood Count 3.09 MIL/MM3 Hemoglobin 9.6 GM/DL Hematocrit 28.8 % Mean Corpuscular Volume 93.3 FL Mean Corpuscular Hemoglobin 31.2 PG Mean Corpuscular Hemoglobin Concent 33.4 % Red Cell Distribution Width 15.4 % Platelet Count 195 TH/MM3 Mean Platelet Volume 6.4 FL Blood Urea Nitrogen 15 MG/DL Creatinine 0.95 MG/DL Random Glucose 125 MG/DL Calcium Level 7.9 MG/DL Magnesium Level 2.3 MG/DL Sodium Level 138 MEQ/L Potassium Level 3.7 MEQ/L Chloride Level 101 MEQ/L Carbon Dioxide Level 27.4 MEQ/L Anion Gap 10 MEQ/L Estimat Glomerular Filtration Rate 78 ML/MIN Objective Remarks GENERAL: NAD, A&Ox3, Obesity. HEAD: Normocephalic. NECK: Supple, trachea midline. No lymphadenopathy. EYES: No scleral icterus. No injection or drainage. CARDIOVASCULAR: Regular rate and rhythm without murmurs, gallops, or rubs. RESPIRATORY: Breath sounds equal bilaterally. No accessory muscle use. wearing CPAP. GASTROINTESTINAL: Abdomen soft, non-tender, nondistended. MUSCULOSKELETAL: No cyanosis, or edema. Right Hip dressed. SKIN: Warm and dry. NEURO: No focal neurological deficits Medications and IVs Current Medications Medications (Trade) Dose Ordered Sig/Marychuy Route Start Time Stop Time Status Last Admin (NS Flush) 2 ml UNSCH PRN IV FLUSH 10/29/16 22:45 (NS Flush) 2 ml BID IV FLUSH 10/30/16 09:00 11/01/16 07:48 (Tylenol) 650 mg Q4H PRN PO 10/29/16 22:45 (Zofran Inj) 4 mg Q6H PRN IVP 10/29/16 22:45 Cefepime HCl 2000 mg/Sodium Chloride 100 ml @ 200 mls/hr Q8H IV 10/30/16 06:00 11/01/16 06:21 (Lipitor) 20 mg HS PO 10/29/16 23:00 10/31/16 22:24 (Coreg) 12.5 mg BID PO 10/29/16 23:00 11/01/16 07:48 (Cymbalta Dr) 60 mg BID PO 10/29/16 23:00 11/01/16 07:48 (Neurontin) 800 mg HS PO 10/29/16 23:00 10/31/16 22:24 ([place] 7.5-325 Mg) 1 tab Q4H PRN PO 10/29/16 23:00 11/01/16 03:03 (Xarelto) 10 mg Q24H PO 10/29/16 23:00 10/31/16 22:25 (Protonix) 40 mg DAILY PO 10/30/16 09:00 11/01/16 07:48 Patient Own Medication PT OWN MED: (Testosterone Topical ... DAILY TOPICAL 10/30/16 09:00 Future Hold (Duoneb Neb) 1 ampule Q6HR NEB NEB 10/30/16 04:00 11/01/16 05:13 (Duoneb Neb) 1 ampule Q2HR NEB PRN NEB 10/29/16 23:30 A/P Assessment and Plan 71-year-old male admitted secondary to pneumonia and hypoxia. Pneumonia, post-op right lower and upper lobes with hypoxia today off oxygen, new CXR improving condition Continue nebulized treatments Continue cefepime 2 g IV every 8 hours. clinically improved. Mild renal insufficiency Improved Avoid nephrotoxins s/p right JOON History of Right thigh with positional neuropathy Continue physical therapy, Orthopedic surgery following, today is his 4th post op day, JOON anterior approach, Xarelto for DVT prophylaxis, No dressing changes unless saturated, continue Physical Therapy okay for discharge by Orthopedic surgery will go on Home with [facility]. CAD/Hypertension controlled. Strip 50% blockage Continue carvedilol Continue atorvastatin Follow on telemetry Heart healthy diet DANIELLE Continue CPAP at night DVT prophylaxis Continue Xarelto Discharge Planning Stable no signs of infection will try to discharge in am tomorrow if okay with Orthopedic Surgery. Jono Styles MD Nov 01, 2016 08:49
--- NOTE | 2016-11-01 09:11 | RADRPT ---
EXAM DATE/TIME: 11/01/2016 08:46 [place] COMPARISON: CT PULMONARY ANGIOGRAM, October 29, 2016, 21:33. INDICATIONS : Short of breath. MEDICAL HISTORY : Coronary artery disease. SURGICAL HISTORY : None. ENCOUNTER: Subsequent ACUITY: 4 - 6 days PAIN SCORE: 0/10 LOCATION: Bilateral chest FINDINGS: PA lateral views of the chest demonstrate stable appearance of confluent airspace opacity involving t he right lower lobe and to a lesser extent in the basal aspect of the right upper lobe. The left ana thorax appears grossly clear. Heart size is mildly enlarged. Pulmonary vasculature is normal in calib er. Osseous structures demonstrate degenerative change. CONCLUSION: Stable areas of confluent air space opacification within the right hemithorax consistent with pneumon ia. Zulay Agudelo MD on November 01, 2016 at 9:09 Board Certified Radiologist. This report was verified electronically.
[2016-11-01] MEDS ORDERED: LACTULOSE SYRUP 20 GM/30 ML CUP PO ONE (16:00)
[2016-11-01] MEDS ORDERED: GLYCERIN ADULT 2 GM SUPP RECTAL ONE (16:00)
[2016-11-01] MEDS: GABAPENTIN 400 MG CAP PO SCH (21:17)
[2016-11-01] MEDS: ATORVASTATIN 20 MG TAB PO SCH (21:18)
[2016-11-01] MEDS: RIVAROXABAN 10 MG TAB PO SCH (22:38)
[2016-11-02] VITALS: BP 136/65; PULSE 73; RESP 18; O2SAT 99
[2016-11-02 04:00] VITALS: BP 125/58; PULSE 69; RESP 18; TEMP 97.1; O2SAT 92
[2016-11-02] MEDS: RESP: ALBUTEROL 2.5 MG/IPRATROPIUM 0.5 MG NEB (SCH) NEB ×2 (04:43→08:03)
[2016-11-02] MEDS: CEFEPIME INJ 2,000 MG in SODIUM CHLORIDE 0.9% INJ 100 ML IV SCH (05:29)
[2016-11-02 08:00] VITALS: BP 121/60; PULSE 72; RESP 20; TEMP 98.1; O2SAT 95
[2016-11-02 08:05] VITALS: O2SAT 96
--- NOTE | 2016-11-02 08:46 | HHI.PR ---
Subjective Remarks This is a pleasant 71 y/o Male who came to ER with Fever 102.4 and Non productive cough, he was sent by his Primary Orthopedic Surgery he is in status post Right Total Hip arthroplasty on 10/27/16. he has CAD, Atrial Fibrillation, Left hip degenerative OA, DANIELLE, Obesity, seen in his bedroom, discussed with nurse Miss Claros, as per patient not improving his is the same as yesterday, asked and encourage ambulation he will have Physical Therapy today recommended by Orthopedic criminal intelligence specialist. at the time of this evaluation he is in bed wearing CPAP. 11/02: Seen in his bedroom in the presence of nurse Miss Elizalde, he is not wearing Oxygen today, and he is improving respiratory porter, no new issues, no nausea, vomit or diarrhea, had a bowel movement. had run of V tach asymptomatic he will continue respiratory therapy at home and he will follow his PCP also will be sent home with [facility] for PT and Skilled nurse. Objective Vital Signs Date Time Temp Pulse Resp B/P (MAP) Pulse Ox O2 Delivery O2 Flow Rate FiO2 11/02/16 08:05 96 11/02/16 08:00 98.1 72 20 121/60 (80) 95 11/02/16 04:00 97.1 69 18 125/58 (80) 92 11/02/16 00:00 73 18 136/65 (88) 99 11/02/16 00:00 Bi-Pap 11/01/16 20:00 98.5 68 18 128/60 (82) 92 11/01/16 20:00 Room Air 11/01/16 20:00 71 11/01/16 17:10 93 11/01/16 16:00 97.5 70 18 158/100 (119) 94 11/01/16 12:00 96.3 61 16 114/59 (77) 93 I/O 11/01/16 11/01/16 11/01/16 11/02/16 11/02/16 11/02/16 07:00 15:00 23:00 07:00 15:00 23:00 Intake Total 100 ml 2300 ml 300 ml Output Total 1200 ml 600 ml Balance 100 ml 1100 ml -300 ml Intake Oral 2200 ml IV Total 100 ml 100 ml 300 ml Output Urine Total 1200 ml 600 ml # Voids 2 # Bowel Movements 0 1 Result Diagram: 10/31/16 1322 11/01/16 0502 Imaging Last Impressions Chest X-Ray 11/01/16 0800 Signed Impressions: Service Date/Time: Tuesday, November 01, 2016 08:46 - CONCLUSION: Stable areas of confluent air space opacification within the right hemithorax consistent with pneumonia. Zulay Agudelo MD Lower Extremity Ultrasound 10/29/161952 Signed Impressions: Service Date/Time: October 20:14 - CONCLUSION: No DVT is identified within the right lower extremity. Leonardo Diaz MD CT Angiography 10/29/161952 Signed Impressions: Service Date/Time: October 21:33 - CONCLUSION: 1. No PE is identified. 2. There is bilateral atelectasis along with mild consolidation in the right lower lobe and right upper lobe. Leonardo Diaz MD Procedures Right Total Hip Arthroplasty. Other Results Laboratory Tests Test 10/29/16 20:12 10/29/16 20:45 10/30/16 05:02 10/30/16 05:10 Prothrombin Time 11.8 SEC Prothromb Time International Ratio 1.1 RATIO Activated Partial Thromboplast Time 33.2 SEC D-Dimer Quantitative (PE/DVT) 1.66 MG/L FEU Blood Urea Nitrogen 20 MG/DL 15 MG/DL Creatinine 1.18 MG/DL 0.91 MG/DL Random Glucose 119 MG/DL 108 MG/DL Total Protein 6.7 GM/DL 6.1 GM/DL Albumin 3.2 GM/DL Calcium Level 7.8 MG/DL 7.4 MG/DL Alkaline Phosphatase 100 U/L Aspartate Amino Transf (AST/SGOT) 52 U/L Alanine Aminotransferase (ALT/SGPT) 30 U/L Total Bilirubin 0.9 MG/DL Sodium Level 132 MEQ/L 133 MEQ/L Potassium Level 3.8 MEQ/L 3.6 MEQ/L Chloride Level 98 MEQ/L 98 MEQ/L Carbon Dioxide Level 26.4 MEQ/L 26.9 MEQ/L Total Creatine Kinase 875 U/L Creatine Kinase MB 2.6 NG/ML Creatine Kinase MB % 0.3 % Troponin I LESS THAN 0.02 NG/ML B-Type Natriuretic Peptide 58 PG/ML Urine Color YELLOW Urine Turbidity CLEAR Urine pH 5.5 Urine Specific [place] 1.022 Urine Protein TRACE mg/dL Urine Glucose (UA) NEG mg/dL Urine Ketones NEG mg/dL Urine Occult Blood NEG Urine Nitrite NEG Urine Bilirubin NEG Urine Urobilinogen LESS THAN 2.0 MG/DL Urine Leukocyte Esterase NEG Urine RBC LESS THAN 1 /hpf Urine WBC 1 /hpf Urine Bacteria RARE /hpf Urine Hyaline Casts 3 /lpf Urine Mucus FEW /lpf Microscopic Urinalysis Comment CULT NOT INDICATED Neutrophils (%) (Auto) 69.3 % Lymphocytes (%) (Auto) 17.3 % Monocytes (%) (Auto) 10.6 % Eosinophils (%) (Auto) 2.3 % Basophils (%) (Auto) 0.5 % Neutrophils # (Auto) 6.4 TH/MM3 Lymphocytes # (Auto) 1.6 TH/MM3 Monocytes # (Auto) 1.0 TH/MM3 Eosinophils # (Auto) 0.2 TH/MM3 Basophils # (Auto) 0.0 TH/MM3 CBC Comment DIFF FINAL Differential Comment Protein Corrected Calcium 7.9 MG/DL Test 10/31/16 13:22 11/01/16 05:02 White Blood Count 7.1 TH/MM3 Red Blood Count 3.09 MIL/MM3 Hemoglobin 9.6 GM/DL Hematocrit 28.8 % Mean Corpuscular Volume 93.3 FL Mean Corpuscular Hemoglobin 31.2 PG Mean Corpuscular Hemoglobin Concent 33.4 % Red Cell Distribution Width 15.4 % Platelet Count 195 TH/MM3 Mean Platelet Volume 6.4 FL Blood Urea Nitrogen 15 MG/DL Creatinine 0.95 MG/DL Random Glucose 125 MG/DL Calcium Level 7.9 MG/DL Magnesium Level 2.3 MG/DL Sodium Level 138 MEQ/L Potassium Level 3.7 MEQ/L Chloride Level 101 MEQ/L Carbon Dioxide Level 27.4 MEQ/L Anion Gap 10 MEQ/L Estimat Glomerular Filtration Rate 78 ML/MIN Objective Remarks GENERAL: NAD, A&Ox3, Obesity. HEAD: Normocephalic. NECK: Supple, trachea midline. No lymphadenopathy. EYES: No scleral icterus. No injection or drainage. CARDIOVASCULAR: Regular rate and rhythm without murmurs, gallops, or rubs. RESPIRATORY: Breath sounds equal bilaterally. No accessory muscle use. wearing CPAP. GASTROINTESTINAL: Abdomen soft, non-tender, nondistended. MUSCULOSKELETAL: No cyanosis, or edema. Right Hip dressed. SKIN: Warm and dry. NEURO: No focal neurological deficits Medications and IVs Current Medications Medications (Trade) Dose Ordered Sig/[place] Route Start Time Stop Time Status Last Admin (NS Flush) 2 ml UNSCH PRN IV FLUSH 10/29/16 22:45 (NS Flush) 2 ml BID IV FLUSH 10/30/16 09:00 11/01/16 21:18 (Tylenol) 650 mg Q4H PRN PO 10/29/16 22:45 (Zofran Inj) 4 mg Q6H PRN IVP 10/29/16 22:45 Cefepime HCl 2000 mg/Sodium Chloride 100 ml @ 200 mls/hr Q8H IV 10/30/16 06:00 11/02/16 05:29 (Lipitor) 20 mg HS PO 10/29/16 23:00 11/01/16 21:18 (Coreg) 12.5 mg BID PO 10/29/16 23:00 11/01/16 21:17 (C[address]) 60 mg BID PO 10/29/16 23:00 11/01/16 21:17 (Neurontin) 800 mg HS PO 10/29/16 23:00 11/01/16 21:17 ([place] 7.5-325 Mg) 1 tab Q4H PRN PO 10/29/16 23:00 11/01/16 03:03 (Xarelto) 10 mg Q24H PO 10/29/16 23:00 11/01/16 22:38 (Protonix) 40 mg DAILY PO 10/30/16 09:00 11/01/16 07:48 Patient Own Medication PT OWN MED: (Testosterone Topical ... DAILY TOPICAL 10/30/16 09:00 Future Hold (Duoneb Neb) 1 ampule Q6HR NEB NEB 10/30/16 04:00 11/02/16 08:03 (Duoneb Neb) 1 ampule Q2HR NEB PRN NEB 10/29/16 23:30 A/P Assessment and Plan 71-year-old male admitted secondary to pneumonia and hypoxia. Pneumonia, post-op right lower and upper lobes with hypoxia today off oxygen, new CXR improving condition Continue nebulized treatments, stop IV antibiotic and continue Levaquin for 5 more days along with respiratory treatment. Mild renal insufficiency Improved Avoid nephrotoxins Constipation Improved. s/p right JOON History of Right thigh with positional neuropathy Continue physical therapy, Orthopedic surgery following, today is his 4th post op day, JOON anterior approach, Xarelto for DVT prophylaxis, No dressing changes unless saturated, continue Physical Therapy okay for discharge by Orthopedic surgery will go on Home with [facility]. CAD/Hypertension controlled. Strip 50% blockage Continue carvedilol Continue atorvastatin Heart healthy diet Had an episode of V Tach asymptomatic will follow his PCP and also sent home with skilled nurse. DANIELLE Continue CPAP at night DVT prophylaxis Continue Xarelto Discharge Planning Discharge Home on [facility] Jono Styles MD Nov 02, 2016 08:46
[2016-11-02] MEDS ORDERED: XARE10TA PO (08:51)
[2016-11-02] MEDS ORDERED: HYDR-3580 PO (08:51)
[2016-11-02] MEDS ORDERED: LEVA750T9 PO (08:51)
[2016-11-02] MEDS ORDERED: SYMB160A INH (08:51)
--- NOTE | 2016-11-02 08:53 | HHI.FF ---
Face to Face Verification Diagnosis: (1) Osteoarthritis of right hip (2) S/P total hip arthroplasty Physical Therapy Order: Evaluate and Treat, Improve ambulation, Strength and gait training Home Health Nursing Order: Medical education Signs/symptoms of disease process Medication education-adverse effect Nursing assessment with vital signs I have seen patient Dain Glasgow on 11/02/16. My clinical findings support the need for the requested home health care services because: Ltd mobility - disease progression I certify that my clinical findings support that this patient is homebound because: Unsafe to leave home unassisted Jono Styles MD Nov 02, 2016 08:53
--- NOTE | 2016-11-02 08:55 | HHI.DS ---
Discharge Summary Admission Date Oct 29, 2016 at 22:16 Discharge Date: Nov 02, 2016 Admitting Diagnosis pneumonia (1) Pneumonia ICD Code: J18.9 - Pneumonia, unspecified organism Diagnosis: Principal Status: Acute (2) Acute renal insufficiency ICD Code: N28.9 - Disorder of kidney and ureter, unspecified Diagnosis: Principal (3) Dehydration ICD Code: E86.0 - Dehydration Diagnosis: Principal (4) S/P total hip arthroplasty ICD Code: Z96.649 - Presence of unspecified artificial hip joint Diagnosis: Principal (5) CAD (coronary artery disease) ICD Code: I25.10 - Atherosclerotic heart disease of [place] coronary artery without angina pectoris Diagnosis: Principal (6) DANIELLE (obstructive sleep apnea) ICD Code: G47.33 - Obstructive sleep apnea (adult) (pediatric) Diagnosis: Principal Procedures Right Total Hip Arthroplasty Brief History - From Admission Written by Claudia Tuttle, acting as scribe for Dr. Hay on 10/29/16 at 23:08. Patient seen in his room wearing home cpap. Fever of 102.4 and nonproductive cough. Denies chest pain, shortness of breath, syncope, or dizziness. Denies nausea, vomiting, or diarrhea. Dr. Aguirre referred him to the ED after he called reporting fever. Patient was admitted 10/27 and discharged 10/28 for total hip replacement. The patient is also complaining of right hip "burning" pain relating to post-op area. He states this started in the ED. He states that if he keeps his leg from rotating, the pain goes away but is requiring a rolled up blanket under right thigh to positionally support right hip to prevent the pain. CBC/BMP: 10/31/16 1322 11/01/16 0502 Significant Findings Laboratory Tests Test 10/31/16 08:30 10/31/16 13:22 11/01/16 05:02 Calcium Level 8.2 MG/DL (8.5-10.1) 7.9 MG/DL (8.5-10.1) Sodium Level 133 MEQ/L (136-145) Estimat Glomerular Filtration Rate 83 ML/MIN (>89) 78 ML/MIN (>89) Red Blood Count 3.09 MIL/MM3 (4.50-5.90) Hemoglobin 9.6 GM/DL (13.0-17.0) Hematocrit 28.8 % (39.0-51.0) Mean Platelet Volume 6.4 FL (7.0-11.0) Random Glucose 125 MG/DL (74-106) Imaging Last Impressions Chest X-Ray 11/01/16 0800 Signed Impressions: Service Date/Time: Tuesday, November 01, 2016 08:46 - CONCLUSION: Stable areas of confluent air space opacification within the right hemithorax consistent with pneumonia. Zulay Agudelo MD Lower Extremity Ultrasound 10/29/161952 Signed Impressions: Service Date/Time: October 20:14 - CONCLUSION: No DVT is identified within the right lower extremity. Leonardo Diaz MD CT Angiography 10/29/161952 Signed Impressions: Service Date/Time: October 21:33 - CONCLUSION: 1. No PE is identified. 2. There is bilateral atelectasis along with mild consolidation in the right lower lobe and right upper lobe. Leonardo Diaz MD PE at Discharge GENERAL: NAD, A&Ox3, Obesity. HEAD: Normocephalic. NECK: Supple, trachea midline. No lymphadenopathy. EYES: No scleral icterus. No injection or drainage. CARDIOVASCULAR: Regular rate and rhythm without murmurs, gallops, or rubs. RESPIRATORY: Breath sounds equal bilaterally. No accessory muscle use. wearing CPAP. GASTROINTESTINAL: Abdomen soft, non-tender, nondistended. MUSCULOSKELETAL: No cyanosis, or edema. Right Hip dressed. SKIN: Warm and dry. NEURO: No focal neurological deficits Hospital Course This is a pleasant 71 y/o Male who came to ER with Fever 102.4 and Non productive cough, he was sent by his Primary Orthopedic Surgery he is in status post Right Total Hip arthroplasty on 10/27/16. he has CAD, Atrial Fibrillation, Left hip degenerative OA, DANIELLE, Obesity, seen in his bedroom, discussed with nurse Miss Claros, as per patient not improving his is the same as yesterday, asked and encourage ambulation he will have Physical Therapy today recommended by Orthopedic lan support specialist. at the time of this evaluation he is in bed wearing CPAP. 11/02: Seen in his bedroom in the presence of nurse Miss Elizalde, he is not wearing Oxygen today, and he is improving respiratory porter, no new issues, no nausea, vomit or diarrhea, had a bowel movement. had run of V tach asymptomatic he will continue respiratory therapy at home and he will follow his PCP also will be sent home with [facility] for PT and Skilled nurse. Assessment and Plan 71-year-old male admitted secondary to pneumonia and hypoxia. Pneumonia, post-op right lower and upper lobes with hypoxia today off oxygen, new CXR improving condition Continue nebulized treatments, stop IV antibiotic and continue Levaquin for 5 more days along with respiratory treatment. Mild renal insufficiency Improved Avoid nephrotoxins Constipation Improved. s/p right JOON History of Right thigh with positional neuropathy Continue physical therapy, Orthopedic surgery following, today is his 4th post op day, JOON anterior approach, Xarelto for DVT prophylaxis, No dressing changes unless saturated, continue Physical Therapy okay for discharge by Orthopedic surgery will go on Home with [facility]. CAD/Hypertension controlled. Strip 50% blockage Continue carvedilol Continue atorvastatin Heart healthy diet Had an episode of V Tach asymptomatic will follow his PCP and also sent home with skilled nurse. DANIELLE Continue CPAP at night DVT prophylaxis Continue Xarelto Discharge Planning Discharge Home on C Pt Condition on Discharge: Good Discharge Disposition: Disch w/ Home Health Serv Discharge Time: > 30 minutes Discharge Instructions DIET: Follow Instructions for: Heart Healthy Diet Activities you can perform: Weight Bearing as Dio Other Activity Instructions: Follow Orthopedic Surgery and Physical Therapy recommendations at home Jono Styles MD Nov 02, 2016 08:55
[2016-11-02] MEDS: DULoxetine HCl DR 60 MG CAP PO SCH (09:12)
[2016-11-02] MEDS: PANTOPRAZOLE SOD 40 MG DELAYED RELEASE TAB PO SCH (09:12)
[2016-11-02] MEDS: SODIUM CHLORIDE 0.9% FLUSH 10 ML FLUSH IV FLUSH SCH (09:13)
[2016-11-02] MEDS: CARVEDILOL 12.5 MG TAB PO SCH (09:13)
== END 2016-11-02 12:46 | disposition home health service (06) | DRG 205 ==
LOC: NEPE 19:37 → NEDA 22:16 → N07B 23:21
PROVIDERS: ADMIT Internal Medicine; ATTEND Internal Medicine
DX: J95.89 Other postprocedural complications and disorders of respiratory system, not elsewhere classified (principal); J18.9 Pneumonia, unspecified organism; I47.2 Ventricular tachycardia; G62.9 Polyneuropathy, unspecified; E86.0 Dehydration; N28.9 Disorder of kidney and ureter, unspecified; I25.10 Atherosclerotic heart disease of native coronary artery without angina pectoris; G47.33 Obstructive sleep apnea (adult) (pediatric); E66.9 Obesity, unspecified; Z68.33 Body mass index [BMI] 33.0-33.9, adult; Z96.643 Presence of artificial hip joint, bilateral; R09.02 Hypoxemia; K59.00 Constipation, unspecified; I10 Essential (primary) hypertension; E78.5 Hyperlipidemia, unspecified; Z79.02 Long term (current) use of antithrombotics/antiplatelets; Z85.828 Personal history of other malignant neoplasm of skin
CPT/HCPCS: 71010; 71020; 71275; 80048; 80053; 81001; 82550; 82552; 83735; 83880; 84155; 84484; 85025; 85027; 85379; 85610; 85730; 87040; 93005; 93971; 94640; 94664; J0456; J0692; J7030; J7050; Q9967